=== PATIENT | female | born 1960 | race Caucasian/White ===

== ENCOUNTER → 2017-10-07 06:26 | Outpatient (CLI) | payer MEDICARE, MEDICAID, SELFPAY ==
--- NOTE | 2017-10-07 06:28 | NM_ITS ---
CARDIOLITE SPECT MYOCARDIAL PERFUSION SCAN, REST AND STRESS: EXERCISE STRESS [facility] REVIEW QGS EF AND WALL MOTION EVALUATION: QPS - PERFUSION EVALUATION HISTORY: Chest pain DOSE: 10.13 mCi technetium 99m mibi intravenously at rest followed by 29.1 mCi technetium 99m mibi following the intravenous ministration of 0.4 mg of Lexiscan. Resting blood pressure is 109/56. Stress blood pressure 96/46. FINDINGS: Ejection fraction is calculated to be 70%. Stress images reveal decreased myocardial activity in a portion of the anterior wall while rest images reveal uniform myocardial activity. Gated images calculated ejection fraction of 70% with normal wall motion IMPRESSION: Mild reversible ischemia in the anterior wall with normal ejection fraction and normal wall motion. Clinical correlation advised
--- NOTE | 2017-10-07 07:40 | HMH.ITSHM ---
DULCOLAX NITRO TIZANIDINE COLACE FIBER PROZAC GABAPENTIN MULTIVITAMIN OXYBUTYNIN MIRALAX RESTASIS RIVASTIGMINE
== END ==
PROVIDERS: PCP Emergency Medicine; Visit Provider Internal Medicine
DX: R07.9 Chest pain, unspecified (principal); I95.89 Other hypotension; F02.80 Dementia in other diseases classified elsewhere, unspecified severity, without behavioral disturbance, psychotic disturbance, mood disturbance, and anxiety
CPT/HCPCS: 78452; 93017; 93306; A9502; J2785

== ENCOUNTER 2018-08-14 03:44 | Inpatient (IN) ==
[2018-08-14 04:05] LABS: Basophils # 0.1 K/mm3 (0-0.2); Basophils % 0.5 % (0.1-2.0); Eosinophils # 0.3 K/mm3 (0.0-0.4); Eosinophils % 2.4 % (0.1-12.0); Hematocrit 41.1 % (37.0-47.0); Hemoglobin 13.5 g/dL (12.2-16.2); Lymphocytes # 4.2 K/mm3 (0.7-4.5); Lymphocytes % 39.6 % (10-50); Mean Corpuscular HGB Conc 32.8 g/dL (31.8-35.4); Mean Corpuscular Hemoglobin 27.8 pg (27.0-31.2); Mean Corpuscular Volume 84.6 fl (81-99); Mean Platelet Volume 8.8 fl (7.4-10.4); Monocytes % 8.9 % (1.7-9.3); Neutrophils # 5.2 K/mm3 (1.8-7.8); Neutrophils % 48.6 % (37.0-80.0); Platelet Count 250 K/mm3 (142-424); Red Blood Count 4.85 M/mm3 (4.20-5.40); Red Cell Distribution Width 13.8 % (11.5-17.5); White Blood Count 10.7 K/mm3 (4.8-10.8)
[2018-08-14 04:09] LABS: Microscopic, Urine URINE MICROSCOPIC (MICROSCOPIC)
[2018-08-14 04:12] LABS: Appearance,Urine CLEAR (Clear); Bilirubin,Urine Negative (Negative); Blood, Urine Negative (Negative); Color,Urine YELLOW (Yellow); Glucose,Urine (UA) Negative (Negative); Ketones,Urine Negative (Negative); Leukocyte Esterase,Urine TRACE (Negative); PH,Urine 5.5 (5.0-8.5); Protein,Urine Negative (Negative); Specific Gravity, Urine 1.025 (1.005-1.030); Urobilinogen,Urine 0.2 EU/dl (0.2)
[2018-08-14 04:23] LABS: Anion Gap 13.8 mEq/L (5-15); Blood Urea Nitrogen 13 mg/dL (7-18); Calcium 8.9 mg/dL (8.5-10.1); Carbon Dioxide 27 mmol/L (21.0-32.0); Chloride 105 mmol/L (98-107); Glucose 110 mg/dL (74-106); Potassium 3.8 mmoL/L (3.5-5.1); Sodium 142 mmol/L (136-145)
[2018-08-14 04:36] LABS: Bacteria,Urine 4+ /lpf; Mucus,Urine 2+ /lpf
[2018-08-14 04:38] LABS: Albumin Level 2.8 gm/dL (3.4-5.0); Bilirubin,Direct 0.1 mg/dL (0.0-0.2); Bilirubin,Indirect 0.2 mg/dL (0.0-0.9); Bilirubin,Total 0.3 mg/dL (0.2-1.0); Total Protein,Serum 6.6 gm/dL (6.4-8.2)
--- NOTE | 2018-08-14 05:42 | Emergency Department Note ---
ED Disposition Clinical Impression: Febrile illness, acute, Cavitating mass of lung, Pulmonary nodules/lesions, multiple, Saccular aneurysm, Obesity (BMI 30-39.9) Chest pain Qualifiers: Chest pain type: precordial pain Qualified Code(s): R07.2 - Precordial pain UTI (urinary tract infection) Qualifiers: Urinary tract infection type: site unspecified Hematuria presence: without hematuria Qualified Code(s): N39.0 - Urinary tract infection, site not specified Cholelithiasis Qualifiers: Cholelithiasis location: gallbladder Cholecystitis presence: without cholecystitis Biliary obstruction: without biliary obstruction Qualified Code(s): K80.20 - Calculus of gallbladder without cholecystitis without obstruction Dementia Qualifiers: Dementia type: unspecified type Dementia behavioral disturbance: without behavioral disturbance Qualified Code(s): F03.90 - Unspecified dementia without behavioral disturbance Chronic pain Qualifiers: Chronic pain type: chronic pain syndrome Qualified Code(s): G89.4 - Chronic pain syndrome Disposition: Admitted as Observation Condition on Discharge: Fair Referrals: Provider,Referral, [Referring] - - Critical Care Critical Care Time: No Attestation: On 08/14/18, the high probability of a clinically significant, sudden or life threatening deterioration of the following system(s) required my full and direct attention, intervention and personal management. The time I documented below is in addition to time spent performing reported procedures but includes the following listed in this critical care notation. Medical Decision Making - Medical Records Medical records reviewed: Yes: I reviewed the patient's medical records. - Rick Inquiry Pt receiving controlled substance: No Vital Signs: 08/14/18 03:44 08/14/18 04:15 08/14/18 04:45 Temperature 101.2 F H 100.2 F H Temperature Source Rectal Rectal Pulse Rate [Right Brachial] 87 83 76 Respiratory Rate 16 15 Blood Pressure [Right Arm] 102/54 L 101/54 L 92/56 L Blood Pressure Mean [Right Arm] 70 69 68 02 Sat by Pulse Oximetry 95 94 L 96 Oxygen Delivery Method Nasal Cannula Nasal Cannula Nasal Cannula Oxygen Flow Rate (LPM) 2 2 2 08/14/18 05:05 Temperature Temperature Source Pulse Rate [Right Brachial] 80 Respiratory Rate Blood Pressure [Right Arm] 114/56 L Blood Pressure Mean [Right Arm] 75 02 Sat by Pulse Oximetry 94 L Oxygen Delivery Method Nasal Cannula Oxygen Flow Rate (LPM) 2 - Lab Data Lab results reviewed: Yes: I reviewed the patient's lab results. Lab Results 08/14/18 03:55: WBC 10.7, RBC 4.85, Hgb 13.5, Hct 41.1, MCV 84.6, MCH 27.8, MCHC 32.8, RDW 13.8, Plt Count 250, MPV 8.8, Neut % (Auto) 48.6, Lymph % (Auto) 39.6, Coleman % (Auto) 8.9, Eos % (Auto) 2.4, Baso % (Auto) 0.5, Neut # (Auto) 5.2, Lymph # (Auto) 4.2, Coleman # (Auto) 1.0, Eos # (Auto) 0.3, Baso # (Auto) 0.1 08/14/18 03:55: Sodium 142, Potassium 3.8, Chloride 105, Carbon Dioxide 27, Anion Gap 13.8, BUN 13, Creatinine 0.73, Estimated Creat Clear 119, Estimated GFR 82, Est GFR ( Amer) 99, Glucose 110 H, Calcium 8.9, Troponin I < 0.02 08/14/18 03:55: Lactate 0.4 08/14/18 03:55: Influenza Type A Ag Negative, Influenza Type B Ag Negative 08/14/18 03:55: Total Bilirubin 0.3, Direct Bilirubin 0.1, Indirect Bilirubin 0.2, AST 15, ALT 37, Alkaline Phosphatase 97, Total Protein 6.6, Albumin 2.8 L 08/14/18 04:00: Urine Color Yellow, Urine Appearance Clear, Urine pH 5.5, Ur Specific [place] 1.025, Urine Protein Negative, Urine Glucose (UA) Negative, Urine Ketones Negative, Urine Blood Negative, Urine Nitrate Positive, Urine Bilirubin Negative, Urine Urobilinogen 0.2, Ur Leukocyte Esterase Trace, Urine WBC 5-10, Urine Bacteria 4+, Urine Mucus 2+ Result diagrams: 08/14/18 03:55 08/14/18 03:55 Orders (Tests/Meds): ED MEDICATIONS Generic Name Dose Route Start Last Admin Trade Name Freq PRN Reason Stop Dose Admin Sodium Chloride 1,000 mls @ 999 mls/hr 08/14/18 04:15 08/14/18 04:07 Sod Chlor 0.9% 1000ml Bag IV 08/14/18 05:15 999 mls/hr .Q1H1M CADENCE Administration Sodium Chloride 10 ml 08/14/18 03:48 Saline Flush 10ml Syringe IV 09/13/18 03:47 NEEDED PRN Maintain IV Site Discontinued Medications Generic Name Dose Route Start Last Admin Trade Name Freq PRN Reason Stop Dose Admin Acetaminophen 1,000 mg 08/14/18 04:05 08/14/18 04:07 Tylenol 500mg Tablet PO 08/14/18 04:06 1,000 mg ONCE ONE Administration Ioversol 70 ml 08/14/18 05:59 08/14/18 06:01 Rad-Optiray 350 100ml Vial IV 08/14/18 06:00 70 ml ONCE ONE Administration Protocol Ketorolac Tromethamine 30 mg 08/14/18 04:15 08/14/18 04:16 Toradol 30mg/Ml Vial IV 08/14/18 04:16 30 mg ONCE ONE Administration Methylprednisolone Sodium Succinate 125 mg 08/14/18 04:15 08/14/18 04:16 Solu-Medrol 125mg/2ml Vial IV 08/14/18 04:16 125 mg ONCE ONE Administration Sodium Chloride 40 ml 08/14/18 05:59 08/14/18 06:01 Rad-Ns 50ml Vial IV 08/14/18 06:00 40 ml ONCE ONE Administration Sodium Chloride 10 ml 08/14/18 05:59 08/14/18 06:01 Rad-Saline Flush 10ml Syringe IV 08/14/18 06:00 10 ml ONCE ONE Administration ORDERS Category Date Time Status Blood Culture Stat Micro 08/14/18 03:55 Received Urine Culture Stat Micro 08/14/18 04:00 Received - Radiology Data #1 Image(s): Chest Image Reviewed: Yes I reviewed the patient's radiology image Preliminary Findings: Abnormal (see report) - CT Data CT Scan: Chest Time Received: 06:[address] Reviewed: Yes: I have viewed the radiologist's interpretation Preliminary Findings: Abnormal (see report) - ECG Data Tracing #1 Normal Sinus Rhythm: Yes Ischemic changes: non-specific ST-T wave changes Chest Pain HPI - General Chief Complaint: Chest Pain Stated Complaint: chest pain, sob Time Seen by Provider: 08/14/18 04:00 Mode of Arrival: EMS Source of Information: Patient, EMS, Medical Record Limitations: Physical Limitations Description of Symptoms (Recalled from ER Triage Doc. by RN): Pt brought in by EMS from [facility] for reports of sudden onset chest pain that started approx 45 minutes ago. Pt reports she woke up feeling like an elephant was on her chest. Pt states the pain radiates into her back, and she has sob with it. - History of Present Illness HPI narrative: pt sent from replaced by [facility] for eval of chest pain with no prod cough which started tonight - pt with fever - pt with no reported sob - pt with no hemoptysis MD complaint: chest pain indicative of cardiac Onset (ago): hour(s) Duration: now resolved Activity at onset: during rest Pain location: substernal Severity: moderate Quality: heaviness Pain radiation: none Risk Factors for CAD: Family Hx of CAD Treatments prior to or on arrival for Cardiac Chest Pain: none - CANDELARIO Score for Non-Stemi Age of Patient: 50-59 years old Heart Rate: 70-89 bpm Systolic Blood Pressure: 100-119 mmHg Serum Creatinine: 0.40-0.79 mg/dl CHF Kill[place] Class: I-No CHF Other Risk Factors: None Non-Stemi Risk Score: 97 - Related Data On Oral Contraceptives: No Home Medications Medication Instructions Recorded Confirmed acetaminophen 500 mg capsule 500 mg PO Q4H PRN 07/26/17 08/14/18 bisacodyl 10 mg rectal suppository 10 mg WI DAILY 07/26/17 08/14/18 docusate sodium 250 mg capsule 250 mg PO BID cap 07/26/17 08/14/18 gabapentin 300 mg capsule 300 mg PO QID cap 07/26/17 08/14/18 lactulose 10 gram/15 mL (15 mL) 20 g PO DAILY PRN ml 07/26/17 08/14/18 oral solution multivitamin with minerals capsule 1 cap PO DAILY cap 07/26/17 08/14/18 nitroglycerin 0.4 mg sublingual 0.4 mg SUBLINGUAL Q5M PRN 07/26/17 08/14/18 tablet oxybutynin chloride 5 mg tablet 5 mg PO QID tab 07/26/17 08/14/18 polyethylene glycol 3350 17 17 g PO BID PRN g 07/26/17 08/14/18 gram/dose oral powder rivastigmine 9.5 mg/24 hour 9.5 mg TRANSDERMA DAILY each 07/26/17 08/14/18 transdermal patch tizanidine 4 mg capsule 4 mg PO Q4H PRN cap 07/26/17 08/14/18 Calcium Polycarbophil [Fiber] 625 mg PO BID 08/14/18 08/14/18 cycloSPORINE [Restasis] 1 drop OP BID 08/14/18 08/14/18 Allergies Allergy/AdvReac Type Severity Reaction Status Date / Time bee pollen Allergy Intermediate Unknown Verified 08/14/18 03:51 allergy reaction aspirin Allergy Unknown Verified 08/12/18 18:16 From [facility] (FOOD/DRUG) Allergy Unknown UNK Uncoded 05/07/17 15:29 [facility] History - Hepatitis A Screen Drug use history?: No High risk sexual behaviors?: No History of sexually transmitted infection?: No Currently employed?: No Childcare worker?: No Do you have indoor plumbing?: Yes Do you have electricity?: Yes Attestation statement:: This patient has been screened for Hepatitis A risk factors. I have reviewed the patient's past medical history: Yes Medical History: Reports:: Depression, Hypertension Denies:: Cancer, Diabetes Mellitus Type 1, Diabetes Mellitus Type 2, Internal Pacemaker, MRSA, Seizures Other Medical History: Reports: Arthritis Other Surgeries: Yes: Tubal Ligation. No: Pacemaker Amputation: Yes Fractures: No - Social History Smoking Status: Current every day smoker Tobacco Type: cigarettes # Packs/Day (cigarettes): 1 Alcohol Intake: never Alcohol Intake Frequency:: other Substance Use Type: denies use Occupational Status: unemployed, disabled Housing: correction - Psychiatric History Expresses thoughts of harming self/others: None Suicide Plan Description: No Plan Pschychiatric History:: Reports:: Depression Family Hx:: Unable to obtain Comment: arthritis, ROS Obtained: Yes All systems reviewed & no additional complaints - Constitutional Constitutional: Denies fever(s) - Eyes Eyes: Denies change in vision - ENT Ears, Nose, Mouth, and Throat: Denies sore throat - Cardiovascular Cardiovascular: Reports chest pain, Denies dyspnea - Respiratory Respiratory: No cough - Gastrointestinal Gastrointestingal: Denies: abdominal pain, vomiting - Genitourinary Female Genitourinary: Denies hematuria - Musculoskeletal Musculoskeletal: Denies joint pain, Denies neck pain - Integumentary/Breasts Skin/Breast: Denies rash - Neurologic Neurologic: Denies seizure-like activity Physical Exam - General General appearance: alert - Head Head exam: normocephalic - Eye Eye exam: Present: PERRL, EOMI. Absent: scleral icterus - ENT ENT exam: Present: mucous membranes dry - Neck Neck exam: Present: trachea midline - Respiratory Respiratory exam: Present: normal lung sounds bilaterally. Absent: respiratory distress - Cardiovascular Cardiovascular exam: Present: regular rate, systolic murmur - Abdominal Exam Abdominal exam: Present: soft - Extremities Exam Extremities exam: Present: pedal edema. Absent: calf tenderness - Neurological Exam Neurological exam: Present: alert, CN II-XII intact - Psychiatric Psychiatric exam: Present: normal affect - Skin Skin exam: Absent: rash
--- NOTE | 2018-08-14 09:03 | Consult Report ---
History of Present Illness Consult date: 08/14/18 Requesting physician: Michele Horner Consult reason: chest pain Chief complaint: Back and chest pain Additional Medical History:: 1. Coronary artery disease A. Abnormal Lexiscan Myoview with anterior ischemia, 09/2017 B. Cardiac cath, ANGIOGRAPHIC RESULTS: 1. The left main artery normal 2. The left anterior descending artery normal 3. The circumflex artery nondominant normal 4. The right coronary artery dominant and has a proximal to mid vessel 40- 50% nonflow limiting stenosis 5. The ALEXANDRA ventriculogram reveals normal 65% 6. The left ventricular end-diastolic pressure 10 mmHg IMPRESSION: 1. Moderate disease in the proximal to mid dominant right coronary artery 2. Normal ejection fraction 3. Normal left ventricular end-diastolic pressure PLAN: 1. Medical management 2. LDL less than 55 3. Avoidance of tobacco products 4. Risk factor modification 2. Tobacco use, continued 3. Hypertension 4. History of polysubstance abuse. 5. History of mild dementia History of present illness: 58-year-old white female resident of extended care facility transferred for further evaluation of back pain and chest pain. Patient relates pain in the center of her back near the spine between the shoulder blade area. She also relates some anterior chest discomfort. She does admit to exacerbation of the symptoms with deep breathing or certain movements. ER workup included CTA of the chest revealing what appears to be malignancy with possible metastasis and no evidence of PE. Oncology consult has been placed. Cardiology is asked to see for possible evaluation and treatment of the patient's chest pain with history of coronary artery disease. Baseline EKG shows nonspecific ST-T abnormalities consistent with previous tracings dating back to 2017. Initial troponin is normal. Preliminary echocardiogram pain performed at this time shows preserved ejection fraction. Official report is pending [facility] History Medical History: Reports:: Depression, Hypertension Denies:: Cancer, Diabetes Mellitus Type 1, Diabetes Mellitus Type 2, Internal Pacemaker, MRSA, Seizures *Have you ever received a pneumonia vaccine?: Yes *Have you received a flu vaccine this season?: Yes Other Medical History: Reports: Arthritis Other Surgeries: Yes: Tubal Ligation. No: Pacemaker Amputation: Yes Fractures: No - *Social History Smoking Status: Current every day smoker Tobacco Type: cigarettes # Packs/Day (cigarettes): 2 Alcohol Intake: former Alcohol Intake Frequency:: other Substance Use Type: denies use *Occupational Status:: unemployed, disabled Housing: custodial *Travel in the last 8 weeks: None - Psychiatric History Expresses thoughts of harming self/others: None Suicide Plan Description: No Plan Pschychiatric History:: Reports:: Depression Family Hx:: Unable to obtain Meds Home Medications Medication Instructions Recorded Confirmed Type acetaminophen 500 mg capsule 500 mg PO Q4H PRN 07/26/17 08/14/18 History bisacodyl 10 mg rectal suppository 10 mg UT DAILY 07/26/17 08/14/18 History docusate sodium 250 mg capsule 250 mg PO BID cap 07/26/17 08/14/18 History gabapentin 300 mg capsule 300 mg PO QID cap 07/26/17 08/14/18 History lactulose 10 gram/15 mL (15 mL) 20 g PO DAILY PRN ml 07/26/17 08/14/18 History oral solution multivitamin with minerals capsule 1 cap PO DAILY cap 07/26/17 08/14/18 History nitroglycerin 0.4 mg sublingual 0.4 mg SUBLINGUAL Q5M PRN 07/26/17 08/14/18 History tablet oxybutynin chloride 5 mg tablet 5 mg PO QID tab 07/26/17 08/14/18 History polyethylene glycol 3350 17 17 g PO BID PRN g 07/26/17 08/14/18 History gram/dose oral powder rivastigmine 9.5 mg/24 hour 9.5 mg TRANSDERMA DAILY each 07/26/17 08/14/18 History transdermal patch tizanidine 4 mg capsule 4 mg PO Q4H PRN cap 07/26/17 08/14/18 History Calcium Polycarbophil [Fiber] 625 mg PO BID 08/14/18 08/14/18 History cycloSPORINE [Restasis] 1 drop OP BID 08/14/18 08/14/18 History Allergies Allergy/AdvReac Type Severity Reaction Status Date / Time bee pollen Allergy Intermediate Unknown Verified 08/14/18 03:51 allergy reaction aspirin Allergy Unknown Unknown Verified 08/14/18 08:08 allergy reaction shellfish derived Allergy Unknown Unknown Verified 08/14/18 08:08 allergy reaction Review of Systems - *Cardiovascular Reports chest pain, Reports shortness of breath with activity - *Respiratory Reports shortness of breath with activity - *Gastrointestinal Denies abdominal pain, Denies loose stools - *Genitourinary Denies blood in urine - *Musculoskeletal Reports back pain - *Neurologic Denies seizure-like activity Exam Vital signs and Labs for Last 24 Hours: Temp Pulse Resp BP Pulse Ox 98.2 F 78 18 93/48 L 96 08/14/18 07:00 08/14/18 07:00 08/14/18 07:00 08/14/18 07:00 08/14/18 07:00 Laboratory Results - last 24 hr 08/14/18 03:55: WBC 10.7, RBC 4.85, Hgb 13.5, Hct 41.1, MCV 84.6, MCH 27.8, MCHC 32.8, RDW 13.8, Plt Count 250, MPV 8.8, Neut % (Auto) 48.6, Lymph % (Auto) 39.6, [place] % (Auto) 8.9, Eos % (Auto) 2.4, Baso % (Auto) 0.5, Neut # (Auto) 5.2, Lymph # (Auto) 4.2, [place] # (Auto) 1.0, Eos # (Auto) 0.3, Baso # (Auto) 0.1 08/14/18 03:55: Sodium 142, Potassium 3.8, Chloride 105, Carbon Dioxide 27, Anion Gap 13.8, BUN 13, Creatinine 0.73, Estimated Creat Clear 119, Estimated GFR 82, Est GFR ( Amer) 99, Glucose 110 H, Calcium 8.9, Troponin I < 0.02 08/14/18 03:55: Lactate 0.4 08/14/18 03:55: Influenza Type A Ag Negative, Influenza Type B Ag Negative 08/14/18 03:55: Total Bilirubin 0.3, Direct Bilirubin 0.1, Indirect Bilirubin 0.2, AST 15, ALT 37, Alkaline Phosphatase 97, Total Protein 6.6, Albumin 2.8 L 08/14/18 04:00: Urine Color Yellow, Urine Appearance Clear, Urine pH 5.5, Ur Specific [place] 1.025, Urine Protein Negative, Urine Glucose (UA) Negative, Urine Ketones Negative, Urine Blood Negative, Urine Nitrate Positive, Urine Lopez irubin Negative, Urine Urobilinogen 0.2, Ur Leukocyte Esterase Trace, Urine WBC 5-10, Urine Bacteria 4+, Urine Mucus 2+ I & O for Last 24 hours: Intake & Output 08/11/18 08/12/18 08/13/18 08/14/18 11:59 11:59 11:59 11:59 Intake Total 600 / 600 Balance 600 / 600 Weight 182 lb - *Routine HEENT Exam Head: Present: normocephalic Eye: Present: EOMI, PERRL ENT: Present: mucous membranes moist - *Routine Neck Exam Present: supple. Absent: JVD, carotid bruit - *Routine Respiratory Exam Present: CTA bilaterally. Absent: accessory muscle use, rales, rhonchi, wheezes - *Routine Cardiovascular Exam Present: RRR. Absent: murmur, gallop, rubs - *Routine Abdominal Exam Present: soft. Absent: tenderness, distended, guarding - *Routine Extremities Exam Absent: edema, calf tenderness - *Routine Neurological Exam Present: alert, oriented X3, moving all extremities Assessment and Plan (1) Chest pain Current visit: Yes Status: Acute Qualifiers: Chest pain type: precordial pain Qualified Code(s): R07.2 - Precordial pain Category: Medical Code(s): R07.9 - Chest pain, unspecified (2) CAD (coronary artery disease), [place] coronary artery Current visit: Yes Status: Acute Category: Medical Code(s): I25.10 - Atherosclerotic heart disease of [place] coronary artery without angina pectoris (3) Cavitating mass of lung Current visit: Yes Status: Acute Category: Medical Code(s): J98.4 - Other disorders of lung (4) Dementia Current visit: Yes Status: Acute Qualifiers: Dementia type: unspecified type Dementia behavioral disturbance: without behavioral disturbance Qualified Code(s): F03.90 - Unspecified dementia without behavioral disturbance Category: Medical Code(s): F03.90 - Unspecified dementia without behavioral disturbance (5) Febrile illness, acute Current visit: Yes Status: Acute Category: Medical Code(s): R50.9 - Fever, unspecified (6) Obesity (BMI 30-39.9) Current visit: Yes Status: Acute Category: Medical Code(s): E66.9 - Obesity, unspecified (7) Pulmonary nodules/lesions, multiple Current visit: Yes Status: Acute Category: Medical Code(s): R91.8 - Other nonspecific abnormal finding of lung field (8) Saccular aneurysm Current visit: Yes Status: Acute Category: Medical Code(s): I67.1 - Cerebral aneurysm, nonruptured - Assessment and plan all Dx Assessment and Plan for all problems:: 1. Patient was admitted for back and chest pain. Patient has abnormal CTA of the chest with presumed pulmonary malignancy. At this point with echocardiogram showing normal ejection fraction, lab work showing normal troponin and no acute EKG changes, we would recommend no further cardiac workup. 2. Patient would be cleared for any further pulmonary workup, including biopsy or surgery, from a cardiac standpoint.
[2018-08-14 09:30] LABS: Chol/HDL Ratio 6.3 (1-3.5); Cholesterol 221 mg/dL (140-200); HDL Cholesterol 35 mg/dL (29-89); LDL Cholesterol 168 mg/dL (0-130); Triglycerides 90 mg/dL (30-200); VLDL Cholesterol 18 mg/dL (0-40)
--- NOTE | 2018-08-14 09:31 | Non-Invasive Vascular Report ---
"Venous Exam Indications: 729.81 Swelling of limb. 729.5 Pain in limb. IMPRESSIONS 1. No evidence of deep or superficial vein thrombosis involving the right lower extremity 2. No evidence of deep or superficial vein thrombosis involving the left lower extremity Complete lower extremity venous duplex evaluation. Doppler flow study including spectral analysis, color and hollingsworth scale imaging. Location: Bedside. Patient status: Inpatient. Tables: Venous flow and imaging: + +-------+ + |Location |Overall|Flow properties | + +-------+ + |Right common femoral |Patent |Normal phasicity; spontaneous; | | | |normal augmentation; compressible| + +-------+ + |Right saphenofemoral junction|Patent |Compressible | + +-------+ + |Right profunda femoral |Patent |Compressible | + +-------+ + |Right femoral |Patent |Normal phasicity; spontaneous; | | | |normal augmentation; compressible| + +-------+ + |Right greater saphenous |Patent |Normal phasicity; spontaneous; | | | |normal augmentation; compressible| + +-------+ + |Right popliteal |Patent |Normal phasicity; spontaneous; | | | |normal augmentation; compressible| + +-------+ + |Right posterior tibial |Patent |Compressible | + +-------+ + |Right peroneal |Patent |Compressible | + +-------+ + |Right gastrocnemius |Patent |Compressible | + +-------+ + |Right soleal |Patent |Compressible | + +-------+ + |Left common femoral |Patent |Normal phasicity; spontaneous; | | | |normal augmentation; compressible| + +-------+ + |Left saphenofemoral junction |Patent |Compressible | + +-------+ + |Left profunda femoral |Patent |Compressible | + +-------+ + |Left femoral |Patent |Normal phasicity; spontaneous; | | | |normal augmentation; compressible| + +-------+ + |Left greater saphenous |Patent |Normal phasicity; spontaneous; | | | |normal augmentation; compressible| + +-------+ + |Left popliteal |Patent |Normal phasicity; spontaneous; | | | |normal augmentation; compressible| + +-------+ + |Left posterior tibial |Patent |Compressible | + +-------+ + |Left peroneal |Patent |Compressible | + +-------+ + |Left gastrocnemius |Patent |Compressible | + +-------+ + |Left soleal |Patent |Compressible | + +-------+ + Electronically signed by: Laura Chavarria [id number]"
--- NOTE | 2018-08-14 09:54 | History & Physical Report ---
*Admission Date: 08/14/18 *Chief complaint: cp *History of present illness: 58 yr old female Pt brought in by EMS from [facility] for reports of sudden onset chest pain that started approx 45 minutes ago. Pt reports she woke up feeling like an elephant was on her chest. Pt states the pain radiates into her back, and she has sob with it. Patient admitted for abnormal chest x-ray for consult [facility] History I have reviewed the patient's past medical history: Yes Medical History: Reports:: Depression, Hypertension Denies:: Cancer, Diabetes Mellitus Type 1, Diabetes Mellitus Type 2, Internal Pacemaker, MRSA, Seizures *Have you ever received a pneumonia vaccine?: Yes *Have you received a flu vaccine this season?: Yes Other Medical History: Reports: Arthritis Other Surgeries: Yes: Tubal Ligation. No: Pacemaker Amputation: Yes Fractures: No - *Social History Smoking Status: Current every day smoker Tobacco Type: cigarettes # Packs/Day (cigarettes): 2 Alcohol Intake: former Alcohol Intake Frequency:: other Substance Use Type: denies use *Occupational Status:: unemployed, disabled Housing: intermediate *Travel in the last 8 weeks: None - Psychiatric History Expresses thoughts of harming self/others: None Suicide Plan Description: No Plan Pschychiatric History:: Reports:: Depression Family Hx:: Unable to obtain Review of Systems - Review of Systems Review of systems:: pertinent systems reviewed and negative unless documented below - Constitutional Denies fever(s) - Eyes Denies change in vision - ENT Denies bad breath, Denies sore throat - *Cardiovascular Reports chest pain - *Respiratory Denies shortness of breath - *Gastrointestinal Denies bloating - *Genitourinary Denies abnormal vaginal bleeding - *Musculoskeletal Denies decreased muscle mass - Integumentary/Breasts Denies rash - *Neurologic Denies abnormal movements, Denies seizure-like activity - Psychiatric Denies anxiety - Endocrine Denies heat intolerance - Hematologic/Lymphatic Denies enlarged lymph nodes - Allergic/Immunologic Denies lip swelling Meds Home Medications Medication Instructions Recorded Confirmed Type acetaminophen 500 mg capsule 500 mg PO Q4HP PRN 07/26/17 08/14/18 History bisacodyl 10 mg rectal suppository 10 mg RC Q72H PRN 07/26/17 08/14/18 History docusate sodium 250 mg capsule 250 mg PO BID cap 07/26/17 08/14/18 History gabapentin 300 mg capsule 300 mg PO QID cap 07/26/17 08/14/18 History lactulose 10 gram/15 mL (15 mL) 20 gm PO DAILYP PRN ml 07/26/17 08/14/18 History oral solution multivitamin with minerals capsule 1 cap PO DAILY cap 07/26/17 08/14/18 History nitroglycerin 0.4 mg sublingual 0.4 mg SUBLINGUAL Q5MINP PRN 07/26/17 08/14/18 History tablet oxybutynin chloride 5 mg tablet 5 mg PO QID tab 07/26/17 08/14/18 History polyethylene glycol 3350 17 17 g PO BID g 07/26/17 08/14/18 History gram/dose oral powder rivastigmine 9.5 mg/24 hour 9.5 mg TRANSDERMA DAILY each 07/26/17 08/14/18 History transdermal patch tizanidine 4 mg capsule 4 mg PO Q4HP PRN cap 07/26/17 08/14/18 History Calcium Polycarbophil [Fiber] 625 mg PO DAILY 08/14/18 08/14/18 History cycloSPORINE [Restasis] 1 drop OP BID 08/14/18 08/14/18 History Allergies Allergy/AdvReac Type Severity Reaction Status Date / Time bee pollen Allergy Intermediate Unknown Verified 08/14/18 03:51 allergy reaction aspirin Allergy Unknown Unknown Verified 08/14/18 08:08 allergy reaction shellfish derived Allergy Unknown Unknown Verified 08/14/18 08:08 allergy reaction Exam Vital signs and Labs for Last 24 Hours: Temp Pulse Resp BP Pulse Ox 98.2 F 78 18 93/48 L 96 08/14/18 07:00 08/14/18 07:00 08/14/18 07:00 08/14/18 07:00 08/14/18 07:00 Laboratory Results - last 24 hr 08/14/18 03:55: WBC 10.7, RBC 4.85, Hgb 13.5, Hct 41.1, MCV 84.6, MCH 27.8, MCHC 32.8, RDW 13.8, Plt Count 250, MPV 8.8, Neut % (Auto) 48.6, Lymph % (Auto) 39.6, [place] % (Auto) 8.9, Eos % (Auto) 2.4, Baso % (Auto) 0.5, Neut # (Auto) 5.2, Lymph # (Auto) 4.2, [place] # (Auto) 1.0, Eos # (Auto) 0.3, Baso # (Auto) 0.1 08/14/18 03:55: Sodium 142, Potassium 3.8, Chloride 105, Carbon Dioxide 27, Anion Gap 13.8, BUN 13, Creatinine 0.73, Estimated Creat Clear 119, Estimated GFR 82, Est GFR ( Amer) 99, Glucose 110 H, Calcium 8.9, Troponin I < 0.02 08/14/18 03:55: Lactate 0.4 08/14/18 03:55: Influenza Type A Ag Negative, Influenza Type B Ag Negative 08/14/18 03:55: Total Bilirubin 0.3, Direct Bilirubin 0.1, Indirect Bilirubin 0.2, AST 15, ALT 37, Alkaline Phosphatase 97, Total Protein 6.6, Albumin 2.8 L 08/14/18 04:00: Urine Color Yellow, Urine Appearance Clear, Urine pH 5.5, Ur Specific [place] 1.025, Urine Protein Negative, Urine Glucose (UA) Negative, Urine Ketones Negative, Urine Blood Negative, Urine Nitrate Positive, Urine Bilirubin Negative, Urine Urobilinogen 0.2, Ur Leukocyte Esterase Trace, Urine WBC 5-10, Urine Bacteria 4+, Urine Mucus 2+ 08/14/18 09:05: Magnesium 1.9, Troponin I < 0.02, Triglycerides 90, Cholesterol 221 H, LDL Cholesterol 168 H, VLDL Cholesterol 18, HDL Cholesterol 35, Cholesterol/HDL Ratio 6.3 H I & O for Last 24 hours: Intake & Output 08/11/18 08/12/18 08/13/18 08/14/18 11:59 11:59 11:59 11:59 Intake Total 600 / 600 Balance 600 / 600 Weight 182 lb - Constitutional no acute distress - *Routine HEENT Exam Head: Present: normocephalic Eye: Present: PERRL ENT: Present: mucous membranes moist - *Routine Neck Exam Present: supple. Absent: lymphadenopathy - *Routine Respiratory Exam Present: CTA bilaterally - *Routine Cardiovascular Exam Present: RRR - *Routine Abdominal Exam Present: soft, normoactive bowel sounds. Absent: tenderness - *Routine Extremities Exam Absent: cyanosis, clubbing, edema - *Routine Skin Exam Present: warm. Absent: rash - *Routine Neurological Exam Present: alert, oriented X3 - Routine Psychiatric Exam Present: normal affect Assessment and Plan (1) Chest pain Current visit: Yes Status: Acute Qualifiers: Chest pain type: precordial pain Qualified Code(s): R07.2 - Precordial pain Category: Medical Code(s): R07.9 - Chest pain, unspecified (2) CAD (coronary artery disease), [place] coronary artery Current visit: Yes Status: Acute Category: Medical Code(s): I25.10 - Atherosclerotic heart disease of [place] coronary artery without angina pectoris (3) Cavitating mass of lung Current visit: Yes Status: Acute Category: Medical Code(s): J98.4 - Other disorders of lung (4) Dementia Current visit: Yes Status: Acute Qualifiers: Dementia type: unspecified type Dementia behavioral disturbance: without behavioral disturbance Qualified Code(s): F03.90 - Unspecified dementia without behavioral disturbance Category: Medical Code(s): F03.90 - Unspecified dementia without behavioral disturbance (5) Febrile illness, acute Current visit: Yes Status: Acute Category: Medical Code(s): R50.9 - Fever, unspecified (6) Obesity (BMI 30-39.9) Current visit: Yes Status: Acute Category: Medical Code(s): E66.9 - Obesity, unspecified (7) Pulmonary nodules/lesions, multiple Current visit: Yes Status: Acute Category: Medical Code(s): R91.8 - Other nonspecific abnormal finding of lung field (8) Saccular aneurysm Current visit: Yes Status: Acute Category: Medical Code(s): I67.1 - Cerebral aneurysm, nonruptured - Assessment and plan all Dx Assessment and Plan for all problems:: Rounded with Dr. Horner all orders per Siri
--- NOTE | 2018-08-14 09:56 | Cardiology Report ---
PROCEDURE: 2-D M-mode and color Doppler study INDICATIONS FOR THE TEST: Chest painX COPDX Heart Murmur Tobacco SmokingX Palpitations Fatigue Syncope Edema HypertensionXDiabetes Mellitus Rheumatic Fever SOBXDOE Obesity Hyperlipidemia Family History HD Additional History LUNG MASS PATIENT INFORMATION HEIGHT: 63 WEIGHT:182 GENDER: Female B/P:114/56 2-D/M-MODE INTERPRETATION: 2-D MEASUREMENTS OBSERVED VALUES IN CMS Right Ventricular Dimension (RVDd) 2.2 Interventricular Septum (Thickness)(IVsd) .9 Left Ventricular Internal Dimensions(LVIDd) 5.1 Left Ventricular Posterior Wall (Thickness)(LVPWd) 1.0 Aortic Root 3.2 Aortic Cusp Separation 2.0 Left Atrial Dimensions (LAD) 2.8 2D 1. Left atrium is normal size, left ventricle is normal size, there is no concentric left ventricular hypertrophy, visually estimated ejection fraction of 55% with no regional wall motion abnormality. 2. The right atrium and right ventricle are qualitatively mildly enlarged with normal contractility. 3. The aortic valve is minimally thickened and fibrosed. 4. The mitral and tricuspid valve are grossly normal. 5. The pulmonic valve is poorly visualized. 6. No significant pericardial effusion noted. DOPPLER INTERROGATION: Doppler interrogation of the aortic, mitral and tricuspid valve reveals presence of mild mitral and tricuspid regurgitation, calculated right ventricular systolic pressure is 42 mmHg consistent with moderate pulmonary hypertension, grade 1 diastolic dysfunction seen without tissue Doppler evidence of a increased left atrial pressure, inferior vena cava is normal size with normal inspiratory collapse. CONCLUSION: 1. Normal left ventricular size, preserved left ventricular systolic function, visually estimated ejection fraction 55% with no regional wall motion abnormality, grade 1 diastolic dysfunction seen without tissue Doppler evidence of raised left atrial pressure. 2. Mildly enlarged right ventricle with normal contractility. 3. Mild mitral and tricuspid regurgitation, calculated right ventricular systolic pressure is 42 mmHg consistent with moderate pulmonary hypertension, inferior vena cava is normal size with normal inspiratory collapse. 4. No significant pericardial effusion noted.
--- NOTE | 2018-08-14 10:30 | Pharmacy Consult Notes ---
[facility] Pharmacy VTE Monitoring - Patient Demographics Admission date: 08/14/18 Report Date: 08/14/18 Time: 10:30 Allergies/Adverse Reactions: Patient Allergies bee pollen Allergy (Intermediate, Verified 08/14/18 03:51) Unknown allergy reaction aspirin Allergy (Unknown, Verified 08/14/18 08:08) Unknown allergy reaction shellfish derived Allergy (Unknown, Verified 08/14/18 08:08) Unknown allergy reaction Height: 1.6 m Weight: 82.554 kg Patient Problems: Current Active Problems Febrile illness, acute (Acute) UTI (urinary tract infection) (Acute) Cavitating mass of lung (Acute) Pulmonary nodules/lesions, multiple (Acute) Saccular aneurysm (Acute) Cholelithiasis (Acute) Obesity (BMI 30-39.9) (Acute) Dementia (Acute) Chronic pain (Acute) CAD (coronary artery disease), [place] coronary artery (Acute) Chest pain (Acute) - VTE Risk Labs: VTE Related Lab Results Hgb 13.5 g/dL (12.2-16.2) 08/14/18 03:55 Hct 41.1 % (37.0-47.0) 08/14/18 03:55 Plt Count 250 K/mm3 (142-424) 08/14/18 03:55 BUN 13 mg/dL (7-18) 08/14/18 03:55 Creatinine 0.73 mg/dL (0.55-1.02) 08/14/18 03:55 Estimated Creat Clear 119 mL/min (50-200) 08/14/18 03:55 Was VTE Risk Assessment Performed: Yes VTE Score: 3 VTE Risk Level: Low Risk - Prophylaxis VTE Prophylaxis Ordered?: Yes Types of VTE Prophylaxis: TEDS Knee High Location of Applied Device: Bilateral Lower Extremeties - VTE Diagnosis Confirmed Treatment or plan recommended: Continue Current Treatment
--- NOTE | 2018-08-14 12:44 | Consult Report ---
*Admission Date: 08/14/18 *Chief complaint: lung lesions *History of present illness: 58 yo wf we are ask to see due to abnl ct scan. she had ct angio of chest demonstrating enlarging bilateral lung masses. rul measured 2.3 x 1.8 cm and kirt 3.4 x 3 cm. she denies coughing and sob. she is current smoker 1/2-1 ppd x 30 years. she reports she is gaining weight. [facility] History Medical History: Reports:: Depression, Hypertension Denies:: Cancer, Diabetes Mellitus Type 1, Diabetes Mellitus Type 2, Internal Pacemaker, MRSA, Seizures *Have you ever received a pneumonia vaccine?: Yes *Have you received a flu vaccine this season?: Yes Other Medical History: Reports: Arthritis Other Surgeries: Yes: Tubal Ligation. No: Pacemaker Amputation: Yes Fractures: No - *Social History Smoking Status: Current every day smoker Tobacco Type: cigarettes # Packs/Day (cigarettes): 2 Alcohol Intake: former Alcohol Intake Frequency:: other Substance Use Type: denies use *Occupational Status:: unemployed, disabled Housing: [facility] *Travel in the last 8 weeks: None - Psychiatric History Expresses thoughts of harming self/others: None Suicide Plan Description: No Plan Pschychiatric History:: Reports:: Depression Family Hx:: Unable to obtain Review of Systems - *Neurologic Denies seizure-like activity Meds Home Medications Medication Instructions Recorded Confirmed Type acetaminophen 500 mg capsule 500 mg PO Q4HP PRN 07/26/17 08/14/18 History bisacodyl 10 mg rectal suppository 10 mg RC Q72H PRN 07/26/17 08/14/18 History docusate sodium 250 mg capsule 250 mg PO BID cap 07/26/17 08/14/18 History gabapentin 300 mg capsule 300 mg PO QID cap 07/26/17 08/14/18 History lactulose 10 gram/15 mL (15 mL) 20 gm PO DAILYP PRN ml 07/26/17 08/14/18 History oral solution multivitamin with minerals capsule 1 cap PO DAILY cap 07/26/17 08/14/18 History nitroglycerin 0.4 mg sublingual 0.4 mg SUBLINGUAL Q5MINP PRN 07/26/17 08/14/18 History tablet oxybutynin chloride 5 mg tablet 5 mg PO QID tab 07/26/17 08/14/18 History polyethylene glycol 3350 17 17 g PO BID g 07/26/17 08/14/18 History gram/dose oral powder rivastigmine 9.5 mg/24 hour 9.5 mg TRANSDERMA DAILY each 07/26/17 08/14/18 History transdermal patch tizanidine 4 mg capsule 4 mg PO Q4HP PRN cap 07/26/17 08/14/18 History Calcium Polycarbophil [Fiber] 625 mg PO DAILY 08/14/18 08/14/18 History cycloSPORINE [Restasis] 1 drop OP BID 08/14/18 08/14/18 History Allergies Allergy/AdvReac Type Severity Reaction Status Date / Time bee pollen Allergy Intermediate Unknown Verified 08/14/18 03:51 allergy reaction aspirin Allergy Unknown Unknown Verified 08/14/18 08:08 allergy reaction shellfish derived Allergy Unknown Unknown Verified 08/14/18 08:08 allergy reaction Exam Vital signs and Labs for Last 24 Hours: Temp Pulse Resp BP Pulse Ox 98.2 F 78 18 93/48 L 98 08/14/18 07:00 08/14/18 07:00 08/14/18 07:00 08/14/18 07:00 08/14/18 10:56 Laboratory Results - last 24 hr 08/14/18 03:55: WBC 10.7, RBC 4.85, Hgb 13.5, Hct 41.1, MCV 84.6, MCH 27.8, MCHC 32.8, RDW 13.8, Plt Count 250, MPV 8.8, Neut % (Auto) 48.6, Lymph % (Auto) 39.6, [place] % (Auto) 8.9, Eos % (Auto) 2.4, Baso % (Auto) 0.5, Neut # (Auto) 5.2, Lymph # (Auto) 4.2, [place] # (Auto) 1.0, Eos # (Auto) 0.3, Baso # (Auto) 0.1 08/14/18 03:55: Sodium 142, Potassium 3.8, Chloride 105, Carbon Dioxide 27, Anion Gap 13.8, BUN 13, Creatinine 0.73, Estimated Creat Clear 119, Estimated GFR 82, Est GFR ( Amer) 99, Glucose 110 H, Calcium 8.9, Troponin I < 0.02 08/14/18 03:55: Lactate 0.4 08/14/18 03:55: Influenza Type A Ag Negative, Influenza Type B Ag Negative 08/14/18 03:55: Total Bilirubin 0.3, Direct Bilirubin 0.1, Indirect Bilirubin 0.2, AST 15, ALT 37, Alkaline Phosphatase 97, Total Protein 6.6, Albumin 2.8 L 08/14/18 04:00: Urine Color Yellow, Urine Appearance Clear, Urine pH 5.5, Ur Specific [place] 1.025, Urine Protein Negative, Urine Glucose (UA) Negative, Urine Ketones Negative, Urine Blood Negative, Urine Nitrate Positive, Urine Bilirubin Negative, Urine Urobilinogen 0.2, Ur Leukocyte Esterase Trace, Urine WBC 5-10, Urine Bacteria 4+, Urine Mucus 2+ 08/14/18 09:05: Magnesium 1.9, Troponin I < 0.02, Triglycerides 90, Cholesterol 221 H, LDL Cholesterol 168 H, VLDL Cholesterol 18, HDL Cholesterol 35, Cholesterol/HDL Ratio 6.3 H I & O for Last 24 hours: Intake & Output 08/12/18 08/13/18 08/14/18 08/15/18 11:59 11:59 11:59 11:59 Intake Total 600 / 600 Balance 600 / 600 Weight 182 lb Internal Medicine - CN: Reslt - Labs CBC & Chem 7: 08/14/18 03:55 08/14/18 03:55 Labs: Short CBC 08/14/18 Range/Units 03:55 WBC 10.7 (4.8-10.8) K/mm3 Hgb 13.5 (12.2-16.2) g/dL Hct 41.1 (37.0-47.0) % Plt Count 250 (142-424) K/mm3 BMP 08/14/18 03:55 Sodium 142 Potassium 3.8 Chloride 105 Carbon Dioxide 27 BUN 13 Creatinine 0.73 Glucose 110 H Calcium 8.9 Cardiac Enzymes 08/14/18 08/14/18 Range/Units 03:55 09:05 Troponin I < 0.02 < 0.02 (0.00-0.06) ng/ml Liver Function 08/14/18 Range/Units 03:55 Total Bilirubin 0.3 (0.2-1.0) mg/dL Direct Bilirubin 0.1 (0.0-0.2) mg/dL AST 15 (15-37) U/L ALT 37 (12-78) U/L Alkaline Phosphatase 97 (46-116) U/L Albumin 2.8 L (3.4-5.0) gm/dL Urine 08/14/18 Range/Units 04:00 Urine Color Yellow (Yellow) Urine Appearance Clear (Clear) Urine pH 5.5 (5.0-8.5) Ur Specific [place] 1.025 (1.005-1.030) Urine Protein Negative (Negative) Urine Glucose (UA) Negative (Negative) Assessment and Plan (1) Chest pain Current visit: Yes Status: Acute Qualifiers: Chest pain type: precordial pain Qualified Code(s): R07.2 - Precordial pain Category: Medical Code(s): R07.9 - Chest pain, unspecified (2) CAD (coronary artery disease), [place] coronary artery Current visit: Yes Status: Acute Category: Medical Code(s): I25.10 - Atherosclerotic heart disease of [place] coronary artery without angina pectoris (3) Cavitating mass of lung Current visit: Yes Status: Acute Category: Medical Code(s): J98.4 - Other disorders of lung (4) Dementia Current visit: Yes Status: Acute Qualifiers: Dementia type: unspecified type Dementia behavioral disturbance: without behavioral disturbance Qualified Code(s): F03.90 - Unspecified dementia without behavioral disturbance Category: Medical Code(s): F03.90 - Unspecified dementia without behavioral disturbance (5) Febrile illness, acute Current visit: Yes Status: Acute Category: Medical Code(s): R50.9 - Fever, unspecified (6) Obesity (BMI 30-39.9) Current visit: Yes Status: Acute Category: Medical Code(s): E66.9 - Obesity, unspecified (7) Pulmonary nodules/lesions, multiple Current visit: Yes Status: Acute Category: Medical Code(s): R91.8 - Other nonspecific abnormal finding of lung field (8) Saccular aneurysm Current visit: Yes Status: Acute Category: Medical Code(s): I67.1 - Cerebral aneurysm, nonruptured - Assessment and plan all Dx Assessment and Plan for all problems:: pt with 2 separate lung lesions in separate lobes concerning for malignancy as it appears they are enlarging. recommend ct of abd/pelvis to eval for distant metastatic disease. if lesions noted elsewhere recommend biopsy at most accessible lesion. if no other concerning lesions will need pet scan and biopsy (potentially of both lung lesions) in order to document metastatic vs 2 separate primary lesions. await ct of abd/pelvis. f/up with me next week for further discussion . Kristel Lucas MD
[2018-08-15 06:18] LABS: Basophils % 0.3 % (0.1-2.0); Eosinophils # 0.1 K/mm3 (0.0-0.4); Eosinophils % 0.6 % (0.1-12.0); Hematocrit 37.3 % (37.0-47.0); Hemoglobin 12.2 g/dL (12.2-16.2); Lymphocytes # 5.2 K/mm3 (0.7-4.5); Lymphocytes % 40.8 % (10-50); Mean Corpuscular HGB Conc 32.6 g/dL (31.8-35.4); Mean Corpuscular Hemoglobin 27.8 pg (27.0-31.2); Mean Corpuscular Volume 85.1 fl (81-99); Mean Platelet Volume 8.9 fl (7.4-10.4); Monocytes # 0.8 K/mm3 (0.1-1.0); Monocytes % 5.9 % (1.7-9.3); Neutrophils # 6.6 K/mm3 (1.8-7.8); Neutrophils % 52.3 % (37.0-80.0); Platelet Count 211 K/mm3 (142-424); Red Blood Count 4.38 M/mm3 (4.20-5.40); Red Cell Distribution Width 13.6 % (11.5-17.5); White Blood Count 12.7 K/mm3 (4.8-10.8)
[2018-08-15 06:37] LABS: Albumin Level 2.5 gm/dL (3.4-5.0); Albumin/Globulin Ratio 0.7 (1.1-1.8); Anion Gap 10.8 mEq/L (5-15); Bilirubin,Total 0.1 mg/dL (0.2-1.0); Calcium 8.4 mg/dL (8.5-10.1); Globulin 3.5 gm/dl (1.3-3.2); Potassium 3.8 mmoL/L (3.5-5.1)
--- NOTE | 2018-08-15 08:24 | Progress Note ---
Subjective Date: 08/15/18 Time: 08:20 Principal diagnosis: chest/back pain Interval history: 58 yo WF in bed in NAD. No chest or back pain. No complaint of SOA. Wants a cigarette. Exam Vital signs and Labs for Last 24 Hours: Temp Pulse Resp BP Pulse Ox 98.5 F 83 17 98/41 L 96 08/15/18 04:00 08/15/18 04:00 08/15/18 04:00 08/15/18 04:00 08/15/18 04:00 Laboratory Results - last 24 hr 08/14/18 04:00: Urine Color Yellow, Urine Appearance Clear, Urine pH 5.5, Ur Specific [place] 1.025, Urine Protein Negative, Urine Glucose (UA) Negative, Urine Ketones Negative, Urine Blood Negative, Urine Nitrate Positive, Urine Bilirubin Negative, Urine Urobilinogen 0.2, Ur Leukocyte Esterase Trace, Urine WBC 5-10, Urine Bacteria 4+, Urine Mucus 2+ 08/14/18 09:05: Magnesium 1.9, Troponin I < 0.02, Triglycerides 90, Cholesterol 221 H, LDL Cholesterol 168 H, VLDL Cholesterol 18, HDL Cholesterol 35, C holesterol/HDL Ratio 6.3 H 08/14/18 13:20: Troponin I < 0.02 08/15/18 05:35: WBC 12.7 H, RBC 4.38, Hgb 12.2, Hct 37.3, MCV 85.1, MCH 27.8, MCHC 32.6, RDW 13.6, Plt Count 211, MPV 8.9, Neut % (Auto) 52.3, Lymph % (Auto) 40.8, [place] % (Auto) 5.9, Eos % (Auto) 0.6, Baso % (Auto) 0.3, Neut # (Auto) 6.6, Lymph # (Auto) 5.2 H, [place] # (Auto) 0.8, Eos # (Auto) 0.1, Baso # (Auto) 0.0 08/15/18 05:35: Sodium 146 H, Potassium 3.8, Chloride 111 H, Carbon Dioxide 28, Anion Gap 10.8, BUN 9 D, Creatinine 0.79, Estimated Creat Clear 102, Estimated GFR 74, Est GFR ( Amer) 90, Glucose 126 H, Calcium 8.4 L, Total Bilirubin 0.1 L, AST 13 L, ALT 32, Alkaline Phosphatase 83, Total Protein 6.0 L, Albumin 2.5 L D, Globulin 3.5 H, Albumin/Globulin Ratio 0.7 L I & O for Last 24 hours: Intake & Output 08/12/18 08/13/18 08/14/18 08/15/18 11:59 11:59 11:59 11:59 Intake Total 600 / 600 1364 / 1364 Balance 600 / 600 1364 / 1364 Weight 182 lb 185 lb 6 oz Microbiology Reports for the Last 24 Hours: Microbiology 08/14/18 04:00 Urine,Catheterized Urine Culture - Preliminary Gram Negative Rods - *Routine Respiratory Exam Present: CTA bilaterally. Absent: accessory muscle use, rales, rhonchi, wheezes - *Routine Cardiovascular Exam Present: RRR. Absent: murmur, gallop, rubs Progress Note: A&P (1) Chest pain Status: Acute Current Visit: Yes (2) CAD (coronary artery disease), [place] coronary artery Status: Acute Current Visit: Yes (3) Cavitating mass of lung Status: Acute Current Visit: Yes (4) Dementia Status: Acute Current Visit: Yes (5) Febrile illness, acute Status: Acute Current Visit: Yes (6) Obesity (BMI 30-39.9) Status: Acute Current Visit: Yes (7) Pulmonary nodules/lesions, multiple Status: Acute Current Visit: Yes (8) Saccular aneurysm Status: Acute Current Visit: Yes Assessment and Plan for All Diagnoses:: 1. Echo shows preserved EF with elevated right heart pressure. With low BP, will recommend low dose diuretic as needed for SOA (lasix 20 mg Qday PRN). 2. Nothing further to add. 3. OK for discharge from Cardiology standpoint.
--- NOTE | 2018-08-15 09:18 | Discharge Summary ---
General - General Admission date:: 08/14/18 Discharge date: 08/15/18 HPI HPI: 58 yr old female Pt brought in by EMS from [facility] for reports of sudden onset chest pain that started approx 45 minutes ago. Pt reports she woke up feeling like an elephant was on her chest. Pt states the pain radiates into her back, and she has sob with it. Patient admitted for abnormal chest x-ray for consult Hospital Course Hospital Course: ct abd:IMPRESSION: 1. Cholelithiasis. 2. Sigmoid diverticulosis. 3. Lingular mass echo:CONCLUSION: 1. Normal left ventricular size, preserved left ventricular systolic function, visually estimated ejection fraction 55% with no regional wall motion abnormality, grade 1 diastolic dysfunction seen without tissue Doppler evidence of raised left atrial pressure. 2. Mildly enlarged right ventricle with normal contractility. 3. Mild mitral and tricuspid regurgitation, calculated right ventricular systolic pressure is 42 mmHg consistent with moderate pulmonary hypertension, inferior vena cava is normal size with normal inspiratory collapse. 4. No significant pericardial effusion noted. venous doppler neg ct chest:IMPRESSION: 1. No evidence of pulmonary embolus. 2. No change small saccular aneurysm of the aortic arch laterally 3. Bilateral pulmonary nodules which have progressed including enlarged left upper lobe mass consistent with neoplasm/metastasis. The cavitating mass in the right upper lobe or the enlarging mass in the left upper lobe could be related to primary malignancy. 4. Groundglass consolidation in the right upper lobe and to a lesser degree the left upper lobe suggesting pneumonitis. 5. Cholelithiasis chest x ray:IMPRESSION: Right upper lobe and left midlung nodules suspicious for metastatic disease/neoplasm. No lobar consolidation or collapse Dr. Lucas consult see note Will discharge back to [facility]. Will follow up with Dr. Lucas and Dr. Peck and have a mammogram done as an outpatient. Objective Vital signs: Temp Pulse Resp BP Pulse Ox 97.6 F 81 18 104/58 L 95 08/15/18 08:00 08/15/18 08:00 08/15/18 08:00 08/15/18 08:00 08/15/18 08:00 no acute distress - *Routine HEENT Exam Head: Present: normocephalic Eye: Present: PERRL ENT: Present: mucous membranes moist - *Routine Neck Exam Present: full ROM - Routine Chest/Breast/Axilla Exam Comments: Right nipple inverted - *Routine Respiratory Exam Present: CTA bilaterally - *Routine Cardiovascular Exam Present: RRR - *Routine Abdominal Exam Present: soft, normoactive bowel sounds - *Routine Extremities Exam Present: full ROM - *Routine Skin Exam Present: intact - *Routine Neurological Exam Present: alert, oriented X3 - Routine Psychiatric Exam Present: normal affect Results Labs on day of discharge: Labs from last 24 hours 08/15/18 08/15/18 08/14/18 05:35 05:35 13:20 WBC 12.7 H RBC 4.38 Hgb 12.2 Hct 37.3 MCV 85.1 MCH 27.8 MCHC 32.6 RDW 13.6 Plt Count 211 MPV 8.9 Neut % (Auto) 52.3 Lymph % (Auto) 40.8 [place] % (Auto) 5.9 Eos % (Auto) 0.6 Baso % (Auto) 0.3 Neut # (Auto) 6.6 Lymph # (Auto) 5.2 H [place] # (Auto) 0.8 Eos # (Auto) 0.1 Baso # (Auto) 0.0 Sodium 146 H Potassium 3.8 Chloride 111 H Carbon Dioxide 28 Anion Gap 10.8 BUN 9 D Creatinine 0.79 Estimated Creat Clear 102 Estimated GFR 74 Est GFR ( Amer) 90 Glucose 126 H Calcium 8.4 L Magnesium Total Bilirubin 0.1 L AST 13 L ALT 32 Alkaline Phosphatase 83 Troponin I < 0.02 Total Protein 6.0 L Albumin 2.5 L D Globulin 3.5 H Albumin/Globulin Ratio 0.7 L Triglycerides Cholesterol LDL Cholesterol VLDL Cholesterol HDL Cholesterol Cholesterol/HDL Ratio Urine Color Urine Appearance Urine pH Ur Specific [place] Urine Protein Urine Glucose (UA) Urine Ketones Urine Blood Urine Nitrate Urine Bilirubin Urine Urobilinogen Ur Leukocyte Esterase Urine WBC Urine Bacteria Urine Mucus 08/14/18 08/14/18 09:05 04:00 WBC RBC Hgb Hct MCV MCH MCHC RDW Plt Count MPV Neut % (Auto) Lymph % (Auto) [place] % (Auto) Eos % (Auto) Baso % (Auto) Neut # (Auto) Lymph # (Auto) [place] # (Auto) Eos # (Auto) Baso # (Auto) Sodium Potassium Chloride Carbon Dioxide Anion Gap BUN Creatinine Estimated Creat Clear Estimated GFR Est GFR ( Amer) Glucose Calcium Magnesium 1.9 Total Bilirubin AST ALT Alkaline Phosphatase Troponin I < 0.02 Total Protein Albumin Globulin Albumin/Globulin Ratio Triglycerides 90 Cholesterol 221 H LDL Cholesterol 168 H VLDL Cholesterol 18 HDL Cholesterol 35 Cholesterol/HDL Ratio 6.3 H Urine Color Yellow Urine Appearance Clear Urine pH 5.5 Ur Specific [place] 1.025 Urine Protein Negative Urine Glucose (UA) Negative Urine Ketones Negative Urine Blood Negative Urine Nitrate Positive Urine Bilirubin Negative Urine Urobilinogen 0.2 Ur Leukocyte Esterase Trace Urine WBC 5-10 Urine Bacteria 4+ Urine Mucus 2+ Preliminary micro results at discharge 08/14/18 04:00 Urine Culture - Preliminary Urine,Catheterized Gram Negative Rods - Additional Comments Rounded with Dr. Horner all orders per Siri Follow-up with Dr. Lundberg Follow-up with Dr. Peck Mammogram as an outpatient DS: Diagnosis - Discharge Diagnosis (1) Chest pain Status: Acute (2) CAD (coronary artery disease), [place] coronary artery Status: Acute (3) Cavitating mass of lung Status: Acute (4) Dementia Status: Acute (5) Febrile illness, acute Status: Acute (6) Obesity (BMI 30-39.9) Status: Acute (7) Pulmonary nodules/lesions, multiple Status: Acute (8) Saccular aneurysm Status: Acute (9) Tobacco abuse Status: Acute Discharge Plan - Patient Discharge Instructions ACTIVITY: Continue current activity DIET: continue same diet Patient Instructions: DI for Angina, DI for Urinary Tract Infection (UTI) - Follow up Plan Follow up with: Shadi Harmon APRN [Advanced Practice Nurse] - Kristel Lucas MD [Staff Physician] - 1 week Nguyễn Peck MD [Consulting Physician] - 1 week Disposition: [facility] Home Medications: Home Medications Medication Instructions Recorded Confirmed Type acetaminophen 500 mg capsule 500 mg PO Q4HP PRN 07/26/17 08/14/18 History bisacodyl 10 mg rectal suppository 10 mg RC Q72H PRN 07/26/17 08/14/18 History docusate sodium 250 mg capsule 250 mg PO BID cap 07/26/17 08/14/18 History gabapentin 300 mg capsule 300 mg PO QID cap 07/26/17 08/14/18 History lactulose 10 gram/15 mL (15 mL) 20 gm PO DAILYP PRN ml 07/26/17 08/14/18 History oral solution multivitamin with minerals capsule 1 cap PO DAILY cap 07/26/17 08/14/18 History nitroglycerin 0.4 mg sublingual 0.4 mg SUBLINGUAL Q5MINP PRN 07/26/17 08/14/18 History tablet oxybutynin chloride 5 mg tablet 5 mg PO QID tab 07/26/17 08/14/18 History polyethylene glycol 3350 17 17 g PO BID g 07/26/17 08/14/18 History gram/dose oral powder rivastigmine 9.5 mg/24 hour 9.5 mg TRANSDERMA DAILY each 07/26/17 08/14/18 History transdermal patch tizanidine 4 mg capsule 4 mg PO Q4HP PRN cap 07/26/17 08/14/18 History Calcium Polycarbophil [Fiber] 625 mg PO DAILY 08/14/18 08/14/18 History cycloSPORINE [Restasis] 1 drop OP BID 08/14/18 08/14/18 History cephALEXin [Keflex 500mg Cap] 500 mg PO BID 10 Days #20 cap 08/15/18 Rx Prescriptions/Medication Reconciliation: New cephALEXin [Keflex 500mg Cap] 500 mg PO BID 10 Days #20 cap Continue gabapentin 300 mg capsule 300 mg PO QID cap oxybutynin chloride 5 mg tablet 5 mg PO QID tab polyethylene glycol 3350 17 gram/dose oral powder 17 g PO BID g rivastigmine 9.5 mg/24 hour transdermal patch 9.5 mg TRANSDERMA DAILY each bisacodyl 10 mg rectal suppository 10 mg RC Q72H PRN PRN Reason: Constipation nitroglycerin 0.4 mg sublingual tablet 0.4 mg SUBLINGUAL Q5MINP PRN PRN Reason: Chest Pain tizanidine 4 mg capsule 4 mg PO Q4HP PRN cap PRN Reason: muscle spasticity docusate sodium 250 mg capsule 250 mg PO BID cap cycloSPORINE [Restasis] 1 drop OP BID Calcium Polycarbophil [Fiber] 625 mg PO DAILY No Action multivitamin with minerals capsule 1 cap PO DAILY cap acetaminophen 500 mg capsule 500 mg PO Q4HP PRN PRN Reason: pain lactulose 10 gram/15 mL (15 mL) oral solution 20 gm PO DAILYP PRN ml PRN Reason: Constipation
== END 2018-08-15 11:20 | DRG 845 ==
LOC: ER 03:44 → 2ND 03:44
PROVIDERS: ADMIT Emergency Medicine; ATTEND Emergency Medicine
CPT/HCPCS: Q9967

== ENCOUNTER → 2018-09-03 16:02 | Outpatient (CLI) | payer MEDICARE, MEDICAID, SELFPAY ==
--- NOTE | 2018-09-03 16:14 | MM_ITS ---
MM Dig screening mamm BI w/CAD ORDERING PHYSICIAN : Michele Horner MD PATIENT AGE: 58 years GENDER: Female COMPARISON: Baseline mammogram None available. INDICATION: Routine screening. No hormones no new complaints noncontributory family history. TECHNIQUE: Standard CC and MLO images were obtained. R2 CAD reviewed. Additional axillary cc view as well as CC nipple profile views bilaterally are helpful FINDINGS: / . Low density breast with generalized fatty replacement. Only Minimal residual fibroglandular elements bilaterally.. No dominant mass nor suspicious calcification either breast. RIGHT BREAST:... Area labeled A: Small 6 mm nodular density lateral retroareolar region I believe this superior to the nipple.. This is labeled A. . Area labeled B small focal area, less than 5 mm. Most likely related to confluence venous structures towards upper-outer quadrant. Suggest spot MLO, CC and 90 degrees view right breast to further evaluate with subsequent breast ultrasound. LEFT BREAST:... . No areas of concern on the left. Follow-up in one year. ======IMPRESSION: RIGHT BREAST.: ... 2 small areas of benign-appearing nodularity right breast warrant additional views & ultrasound ... Area labeled A is at the lateral retroareolar region . Area labeled B may merely be a focal prominence of venous structures LEFT BREAST: No areas of concern. Follow-up in one year on the left. . Low-density breast bilateral BI-RADS Category: 0 Need Additional Imaging Evaluation RECOMMENDED FOLLOW-UP: IMM - IMMEDIATE FOLLOW-UP RECOMMENDED (A letter has been sent to the patient regarding results of the study.)
== END ==
PROVIDERS: PCP Emergency Medicine; Visit Provider Emergency Medicine
DX: Z12.31 Encounter for screening mammogram for malignant neoplasm of breast (principal)
CPT/HCPCS: 77067

== ENCOUNTER → 2018-09-09 16:40 | Outpatient (CLI) | payer MEDICARE, MEDICAID, SELFPAY | PROVIDERS: Visit Provider Urology | DX: R39.89 Other symptoms and signs involving the genitourinary system (principal); N39.0 Urinary tract infection, site not specified | CPT/HCPCS: 87086; 87088; 87186 ==

== ENCOUNTER → 2018-09-23 12:30 | Outpatient (CLI) | payer MEDICARE, MEDICAID, SELFPAY ==
--- NOTE | 2018-09-23 12:32 | US_ITS ---
MM Dig mamm DX unilat RT CAD, US breast RT complete INDICATION: Follow-up abnormal screening exam ORDERING PHYSICIAN: Michele Horner MD PATIENT AGE: 58 years COMPARISON: 09/03/2018 TECHNIQUE: Problem-solving views performed of the right breast along with] ultrasound FINDINGS: The asymmetric density in the lateral aspect of the right breast is felt to be due to overlying vessels. A persistent 3 mm x 4 mm nodular opacity is present in the deep outer aspect of the right breast. There is a 4 mm fairly well-circumscribed nodular density in the lateral periareolar region. The margins somewhat irregular. This however This corresponds to the nodule labeled as A on the screening exam. Right breast ultrasound: There was an 8 x 7 mm hypoechoic nodule in the subcutaneous region at 9:00 in the right breast. Slightly more hypoechoic than the overlying fibroglandular tissue but is felt to be more lateral and is larger than the mammographic abnormality. IMPRESSION: There are 2 right breast nodules 1 seen only on mammography in the lateral right periareolar region as well as an 8 x 7 mm hypoechoic nodule at 9:00 outer. Recommend biopsy of both nodules. The nodule in the periareolar region will need to be biopsied with stereotactic technique and the nodule 9:00 laterally can be biopsied with ultrasound guidance. BI-RADS Category: 4 Suspicious Abnormality-Biopsy Considered RECOMMENDED FOLLOW-UP: BIO - BIOPSY RECOMMENDED (A letter has been sent to the patient regarding results of the study.)
== END ==
PROVIDERS: PCP Emergency Medicine; Visit Provider Emergency Medicine
DX: R92.8 Other abnormal and inconclusive findings on diagnostic imaging of breast (principal)
CPT/HCPCS: 76641; 77065

== ENCOUNTER 2019-05-26 18:17 | Observation (INO) ==
[2019-05-26 18:32] LABS: Basophils % 0.3 % (0.1-2.0); Eosinophils # 0.1 K/mm3 (0.0-0.4); Eosinophils % 0.9 % (0.1-12.0); Hemoglobin 14.2 g/dL (12.2-16.2); Lymphocytes # 2.9 K/mm3 (0.7-4.5); Lymphocytes % 21.9 % (10-50); Mean Corpuscular HGB Conc 33.2 g/dL (31.8-35.4); Mean Corpuscular Volume 86.7 fl (81-99); Mean Platelet Volume 8.8 fl (7.4-10.4); Monocytes # 0.8 K/mm3 (0.1-1.0); Monocytes % 5.7 % (1.7-9.3); Neutrophils # 9.3 K/mm3 (1.8-7.8); Neutrophils % 71.1 % (37.0-80.0); Platelet Count 246 K/mm3 (142-424); Red Blood Count 4.96 M/mm3 (4.20-5.40); Red Cell Distribution Width 13.2 % (11.5-17.5); White Blood Count 13.1 K/mm3 (4.8-10.8)
[2019-05-26 18:46] LABS: Alanine Aminotransferase 21 U/L (12-78); Albumin Level 2.9 gm/dL (3.4-5.0); Albumin/Globulin Ratio 0.8 (1.1-1.8); Alkaline Phosphatase 100 U/L (46-116); Anion Gap 13.5 mEq/L (5-15); Aspartate Amino Transferase 7 U/L (15-37); Bilirubin,Total 0.2 mg/dL (0.2-1.0); Blood Urea Nitrogen 7 mg/dL (7-18); Calcium 8.4 mg/dL (8.5-10.1); Carbon Dioxide 28 mmol/L (21.0-32.0); Chloride 104 mmol/L (98-107); Globulin 3.7 gm/dl (1.3-3.2); Glucose 130 mg/dL (74-106); Sodium 142 mmol/L (136-145); Total Protein,Serum 6.6 gm/dL (6.4-8.2)
--- NOTE | 2019-05-26 19:02 | Emergency Department Note ---
ED Disposition Clinical Impression: Atypical chest pain Disposition: Still a Patient Condition on Discharge: Fair Referrals: Provider,Referral, [Primary Care Provider] - Time of Disposition: 20:33 (Pt's care was transferred to Dr. Horner.) - Critical Care Critical Care Time: No Attestation: On 05/26/19, the high probability of a clinically significant, sudden or life threatening deterioration of the following system(s) required my full and direct attention, intervention and personal management. The time I documented below is in addition to time spent performing reported procedures but includes the following listed in this critical care notation. Medical Decision Making - Rick Inquiry Pt receiving controlled substance: Yes Rick was queried for this patient: No Risks and benefits of using a controlled substance: were not discussed with pt by me Vital Signs: 05/26/19 18:18 Temperature 98 F Temperature Source Oral Pulse Rate [Right Radial] 62 Respiratory Rate 18 Blood Pressure [Right Arm] 103/66 L Blood Pressure Mean [Right Arm] 78 02 Sat by Pulse Oximetry 96 Oxygen Delivery Method Room Air - Lab Data Lab results reviewed: Yes: I reviewed the patient's lab results. Lab Results 05/26/19 18:15: WBC 13.1 H, RBC 4.96, Hgb 14.2, Hct 43.0, MCV 86.7, MCH 28.7, MCHC 33.2, RDW 13.2, Plt Count 246, MPV 8.8, Neut % (Auto) 71.1, Lymph % (Auto) 21.9, [place] % (Auto) 5.7, Eos % (Auto) 0.9, Baso % (Auto) 0.3, Neut # (Auto) 9.3 H, Lymph # (Auto) 2.9, [place] # (Auto) 0.8, Eos # (Auto) 0.1, Baso # (Auto) 0.0 05/26/19 18:15: Sodium 142, Potassium 3.5, Chloride 104, Carbon Dioxide 28, Anion Gap 13.5, BUN 7, Creatinine 0.74, Estimated Creat Clear 98, Estimated GFR 80, Est GFR ( Amer) 97, Glucose 130 H, Calcium 8.4 L, Total Bilirubin 0.2, AST 7 L, ALT 21, Alkaline Phosphatase 100, Troponin I < 0.02, Total Protein 6.6, Albumin 2.9 L, Globulin 3.7 H, Albumin/Globulin Ratio 0.8 L Result diagrams: 05/26/19 18:15 05/26/19 18:15 Orders (Tests/Meds): ORDERS Category Date Time Status Acute abdomen XR minimum 2 views [XR abdomen min 2V] Exams 05/26/19 19:02 Taken Stat XR chest portable Stat Exams 05/26/19 18:22 Taken Troponin I Q3H Lab 05/26/19 21:30 Ordered Troponin I Q3H Lab 05/27/19 00:30 Ordered - Radiology Data #1 Image(s): Chest Image Reviewed: Yes I reviewed the patient's radiology image No aucte Cardiopulmonary process. #2 Image(s): Abdomen Image Reviewed: Yes I reviewed the patient's radiology image X-ray of the abdomen pelvis is negative for any acute intra-abdominal or pelvic findings. - ECG Data Tracing #1 I reviewed this ECG and interpreted as documented below: EKG done at 1819 hrs. shows normal sinus rhythm with a heart rate of 61 bpm, normal P waves, normal IA interval, nonspecific ST-T changes. Normal QRS pattern, normal axis, the EKG is similar to the one done in 10/08/2018. - Physician Consults Physician Consulted: Dr. Horner Time: 20:15 Reason -: Other (Transfer of care pending repeat troponin and further cardiac work up.) - Reevaluation(s) Time: 20:00 Reevaluation #1: Has been stable throughout the course of stay in the ER. Chest Pain HPI - General Chief Complaint: Chest Pain Stated Complaint: chest pain Time Seen by Provider: 05/26/19 18:55 Mode of Arrival: EMS Source of Information: Patient Limitations: No Limitations Description of Symptoms (Recalled from ER Triage Doc. by RN): pt c/o midsternal heavy chest pain. - History of Present Illness HPI narrative: 59-year-old female was brought in by the EMS from the residential for having complaint of chest pain. Patient states she is hurting on the left side of the chest. The pain is sharp in nature. She is not a good historian. No information about the radiation of the pain. No history of nausea or vomiting. Onset (ago): hour(s) (About an hour ago) Duration: constant Activity at onset: other (Patient states she was smoking cigarettes when she felt the pain.) Pain location: left chest Severity: moderate Quality: sharp Risk Factors for CAD: Hypertension, Smoking - Related Data Home Medications Medication Instructions Recorded Confirmed acetaminophen 500 mg capsule 500 mg PO Q4HP PRN 07/26/17 05/14/19 bisacodyl 10 mg rectal suppository 10 mg RC Q72H PRN 07/26/17 05/14/19 docusate sodium 250 mg capsule 250 mg PO BID cap 07/26/17 05/14/19 gabapentin 300 mg capsule 300 mg PO QID cap 07/26/17 05/14/19 lactulose 10 gram/15 mL (15 mL) 20 gm PO DAILYP PRN ml 07/26/17 05/14/19 oral solution multivitamin with minerals 1 cap PO DAILY cap 07/26/17 05/14/19 nitroglycerin 0.4 mg sublingual 0.4 mg SUBLINGUAL Q5MINP PRN 07/26/17 05/14/19 tablet rivastigmine 9.5 mg TRANSDERMA DAILY each 07/26/17 05/14/19 tizanidine 4 mg capsule 4 mg PO Q4HP PRN cap 07/26/17 05/14/19 Calcium Polycarbophil [Fiber] 625 mg PO DAILY 08/14/18 05/14/19 cycloSPORINE [Restasis] 1 drp OP BID 08/14/18 05/14/19 Venlafaxine HCl [Effexor 37.5mg 37.5 mg PO BID 05/14/19 05/14/19 tablet] Previous Rx's Medication Instructions Recorded levoFLOXacin [Levaquin 500mg 500 mg PO DAILY #7 tab 05/14/19 tab] predniSONE [Prednisone 20mg 20 mg PO BID #10 tab 05/14/19 Tab] Allergies Allergy/AdvReac Type Severity Reaction Status Date / Time bee pollen Allergy Intermediate Unknown Verified 05/26/19 18:22 allergy reaction aspirin Allergy Unknown Unknown Verified 05/26/19 18:22 allergy reaction shellfish derived Allergy Unknown Unknown Verified 05/26/19 18:22 allergy reaction [facility] History - Hepatitis A Screen Drug use history?: No High risk sexual behaviors?: No History of sexually transmitted infection?: No Currently employed?: No Childcare worker?: No Do you have indoor plumbing?: Yes Do you have electricity?: Yes Attestation statement:: This patient has been screened for Hepatitis A risk factors. Medical History: Reports:: Cancer, Cerebrovascular Accident, Dementia, Depression, Hypertension, Urinary Tract Infection Denies:: Diabetes Mellitus Type 1, Diabetes Mellitus Type 2, Internal Pacemaker, MRSA, Seizures Other Medical History: Reports: Arthritis Comment: iatrogentic hypotension,neuromuscular dysfunction of bladder,spinal stenosis of sacral region,thiamine def,other psychoactive substance dependence Other Surgeries: Yes: Colonoscopy, Tubal Ligation. No: Pacemaker Amputation: Yes Fractures: No - Social History Smoking Status: Current every day smoker Tobacco Type: cigarettes # Packs/Day (cigarettes): 1 Alcohol Intake: never Alcohol Intake Frequency:: other Substance Use Type: denies use Occupational Status: disabled Housing: residential - Psychiatric History Pschychiatric History:: Reports:: Depression Family Hx:: Unable to obtain Comment: arthritis, ROS Obtained: Yes All systems reviewed & no additional complaints Physical Exam - General General appearance: alert, in no apparent distress - Head Head exam: atraumatic, normocephalic, normal inspection - Eye Eye exam: Present: normal appearance, PERRL, EOMI - ENT ENT exam: Present: normal exam, normal oropharynx, mucous membranes moist, normal external ear exam - Neck Neck exam: Present: normal inspection, full ROM, trachea midline - Chest Chest inspection: Present: normal inspection, symmetric chest wall rise. Absent: tenderness - Respiratory Respiratory exam: Present: normal lung sounds bilaterally. Absent: respiratory distress - Cardiovascular Cardiovascular exam: Present: regular rate, normal rhythm. Absent: JVD - Abdominal Exam Abdominal exam: Present: soft, distention, tenderness (Mild degree of tenderness throughout the abdomen. Questionable fecal matter throughout the abdomen. The exam is suggestive of possible constipation.), normal bowel sounds. Absent: guarding - Extremities Exam Extremities exam: Present: normal inspection, full ROM, normal capillary refill. Absent: calf tenderness - Back Exam Back exam: Present: normal inspection. Absent: tenderness - Neurological Exam Neurological exam: Present: alert, CN II-XII intact, other (Patient does not know where she is. She does not know where she lives.) - Psychiatric Psychiatric exam: Present: normal mood - Skin Skin exam: Present: warm, dry, intact, normal color
[2019-05-26 21:18] LABS: Amylase 26 U/L (25-115)
[2019-05-27 07:13] LABS: Anion Gap 10.5 mEq/L (5-15); Calcium 8.5 mg/dL (8.5-10.1)
[2019-05-27 07:26] LABS: Basophils % 0.2 % (0.1-2.0); Eosinophils # 0.2 K/mm3 (0.0-0.4); Eosinophils % 1.7 % (0.1-12.0); Hematocrit 44.8 % (37.0-47.0); Hemoglobin 14.6 g/dL (12.2-16.2); Lymphocytes # 2.9 K/mm3 (0.7-4.5); Lymphocytes % 27.7 % (10-50); Mean Corpuscular HGB Conc 32.5 g/dL (31.8-35.4); Mean Corpuscular Volume 87.1 fl (81-99); Mean Platelet Volume 9.3 fl (7.4-10.4); Monocytes # 0.8 K/mm3 (0.1-1.0); Monocytes % 7.6 % (1.7-9.3); Neutrophils # 6.6 K/mm3 (1.8-7.8); Neutrophils % 62.8 % (37.0-80.0); Platelet Count 224 K/mm3 (142-424); Red Blood Count 5.14 M/mm3 (4.20-5.40); Red Cell Distribution Width 13.1 % (11.5-17.5); White Blood Count 10.5 K/mm3 (4.8-10.8)
--- NOTE | 2019-05-27 07:34 | Pharmacy Consult Notes ---
[facility] VTE Monitoring - Patient Demographics Admission date: 05/27/19 Report Date: 05/27/19 Time: 07:34 Allergies/Adverse Reactions: Patient Allergies bee pollen Allergy (Intermediate, Verified 05/26/19 18:22) Unknown allergy reaction aspirin Allergy (Unknown, Verified 05/26/19 18:22) Unknown allergy reaction shellfish derived Allergy (Unknown, Verified 05/26/19 18:22) Unknown allergy reaction Height: 1.57 m Weight: 69.144 kg Patient Problems: Current Active Problems Atypical chest pain (Acute) - VTE Risk Labs: VTE Related Lab Results Hgb 14.6 g/dL (12.2-16.2) 05/27/19 06:30 Hct 44.8 % (37.0-47.0) 05/27/19 06:30 Plt Count 224 K/mm3 (142-424) 05/27/19 06:30 BUN 4 mg/dL (7-18) L D 05/27/19 06:30 Creatinine 0.61 mg/dL (0.55-1.02) 05/27/19 06:30 Estimated Creat Clear 107 mL/min (50-200) 05/27/19 06:30 Was VTE Risk Assessment Performed: No VTE Score: 4 VTE Risk Level: Low Risk Clinical Trial Participant: No - Prophylaxis VTE Prophylaxis Ordered?: Yes Types of VTE Prophylaxis: TEDS Knee High Location of Applied Device: Bilateral Lower Extremeties
--- NOTE | 2019-05-27 09:26 | Consult Report ---
History of Present Illness Consult date: 05/27/19 Requesting physician: Michele Horner Consult reason: chest pain Chief complaint: chest pain Additional Medical History:: 1. CVA 2. HTN 3. CAD 4. ANEURYSM 5. DEMENTIA 6. DEPRESSION History of present illness: This is a 59-year-old white female who presented to the emergency department from the halfway with complaints of chest pain. The patient states that she was having a pressure in the center of her chest that radiated to her back. She states that this was a 5 out of 10 in intensity. She states that nothing was making her chest pain worse and nothing was making it better. She states that the chest pain started suddenly while she was smoking cigarettes. That is all the information that I can get from the patient about her chest pain. She does have dementia and a history of a CVA. She is a very poor historian. She cannot tell me anything about her family history and she cannot tell me anything about her personal history. Most of the information on this patient has been gathered from her chart here at [facility]. She does have a history of coronary artery disease with a 40 to 50% lesion to her right coronary artery in 2018. She does smoke about 1 pack/day. She is allergic to aspirin. She denies any fever, chills, nausea, vomiting, diarrhea, PND or orthopnea. [facility] History I have reviewed the patient's past medical history: Yes Medical History: Reports:: Aneurysm, Cancer, Coronary Artery Disease, Cerebrovascular Accident, Dementia, Depression, Hypertension, Urinary Tract Infection Denies:: Diabetes Mellitus Type 1, Diabetes Mellitus Type 2, Internal Pacemaker, MRSA, Seizures *Have you ever received a pneumonia vaccine?: Yes *Have you received a flu vaccine this season?: Yes Other Medical History: Reports: Arthritis Other Surgeries: Yes: Colonoscopy, Tubal Ligation. No: Pacemaker Amputation: Yes Fractures: No - *Social History Educational Level: Attended High School Smoking Status: Current every day smoker Tobacco Type: cigarettes # Packs/Day (cigarettes): 1 Alcohol Intake: former Alcohol Intake Frequency:: other Substance Use Type: unknown *Occupational Status:: disabled Housing: halfway *Travel in the last 8 weeks: None - Psychiatric History Pschychiatric History:: Reports:: Depression Family Hx:: Unable to obtain Meds Home Medications Medication Instructions Recorded Confirmed Type acetaminophen 500 mg capsule 500 mg PO Q4HP PRN 07/26/17 05/27/19 History bisacodyl 10 mg rectal suppository 10 mg RC Q72H PRN 07/26/17 05/27/19 History docusate sodium 250 mg capsule 250 mg PO BID cap 07/26/17 05/27/19 History gabapentin 300 mg capsule 300 mg PO QID cap 07/26/17 05/27/19 History lactulose 10 gram/15 mL (15 mL) 20 gm PO DAILYP PRN ml 07/26/17 05/27/19 History oral solution multivitamin with minerals 1 cap PO DAILY cap 07/26/17 05/27/19 History nitroglycerin 0.4 mg sublingual 0.4 mg SUBLINGUAL Q5MINP PRN 07/26/17 05/27/19 History tablet rivastigmine 9.5 mg TRANSDERMA DAILY each 07/26/17 05/27/19 History tizanidine 4 mg capsule 4 mg PO Q4HP PRN cap 07/26/17 05/27/19 History Calcium Polycarbophil [Fiber] 625 mg PO BID 08/14/18 05/27/19 History cycloSPORINE [Restasis] 1 drp OP BID 08/14/18 05/26/19 History Venlafaxine HCl [Effexor 37.5mg 37.5 mg PO BID 05/14/19 05/27/19 History tablet] levoFLOXacin [Levaquin 500mg 500 mg PO DAILY 05/26/19 05/27/19 History tab] Mag Carb/Aluminum Hydrox/Algin 30 ml PO Q4HP PRN 05/27/19 05/27/19 History [Gaviscon Liquid] Allergies Allergy/AdvReac Type Severity Reaction Status Date / Time bee pollen Allergy Intermediate Unknown Verified 05/26/19 18:22 allergy reaction aspirin Allergy Unknown Unknown Verified 05/26/19 18:22 allergy reaction shellfish derived Allergy Unknown Unknown Verified 05/26/19 18:22 allergy reaction Review of Systems - Review of Systems Review of systems:: pertinent systems reviewed and negative unless documented below - *Cardiovascular Reports chest pain, Reports chest pain at rest, Reports chest pain with activity, Reports radiating jaw, neck or arm pain (To her back) - *Respiratory Reports shortness of breath, Reports shortness of breath with activity Exam Vital signs and Labs for Last 24 Hours: Temp Pulse Resp BP Pulse Ox 97.6 F 66 18 129/50 L 96 05/27/19 08:00 05/27/19 08:00 05/27/19 08:00 05/27/19 08:00 05/27/19 08:00 Laboratory Results - last 24 hr 05/26/19 18:15: WBC 13.1 H, RBC 4.96, Hgb 14.2, Hct 43.0, MCV 86.7, MCH 28.7, MCHC 33.2, RDW 13.2, Plt Count 246, MPV 8.8, Neut % (Auto) 71.1, Lymph % (Auto) 21.9, [place] % (Auto) 5.7, Eos % (Auto) 0.9, Baso % (Auto) 0.3, Neut # (Auto) 9.3 H, Lymph # (Auto) 2.9, [place] # (Auto) 0.8, Eos # (Auto) 0.1, Baso # (Auto) 0.0 05/26/19 18:15: Sodium 142, Potassium 3.5, Chloride 104, Carbon Dioxide 28, Anion Gap 13.5, BUN 7, Creatinine 0.74, Estimated Creat Clear 98, Estimated GFR 80, Est GFR ( Amer) 97, Glucose 130 H, Calcium 8.4 L, Total Bilirubin 0.2, AST 7 L, ALT 21, Alkaline Phosphatase 100, Troponin I < 0.02, Total Protein 6.6, Albumin 2.9 L, Globulin 3.7 H, Albumin/Globulin Ratio 0.8 L 05/26/19 18:15: Amylase 26, Lipase 100 05/26/19 21:40: Troponin I < 0.02 05/27/19 00:35: Troponin I < 0.02 05/27/19 06:30: WBC 10.5, RBC 5.14, Hgb 14.6, Hct 44.8, MCV 87.1, MCH 28.3, MCHC 32.5, RDW 13.1, Plt Count 224, MPV 9.3, Neut % (Auto) 62.8, Lymph % (Auto) 27.7, [place] % (Auto) 7.6, Eos % (Auto) 1.7, Baso % (Auto) 0.2, Neut # (Auto) 6.6, Lymph # (Auto) 2.9, [place] # (Auto) 0.8, Eos # (Auto) 0.2, Baso # (Auto) 0.0 05/27/19 06:30: Sodium 144, Potassium 3.5, Chloride 109 H, Carbon Dioxide 28, Anion Gap 10.5, BUN 4 L D, Creatinine 0.61, Estimated Creat Clear 107, Estimated GFR 100, Est GFR ( Amer) 121 D, Glucose 100 D, Calcium 8.5 I & O for Last 24 hours: Intake & Output 05/24/19 05/25/19 05/26/19 05/27/19 23:59 23:59 23:59 23:59 Intake Total 120 / 120 244 / 244 Balance 120 / 120 244 / 244 Weight 152 lb 7 oz 152 lb 7 oz Narrative: EKG is sinus rhythm with nonspecific T wave abnormalities and a rate of 61. Telemetry strip is sinus rhythm with a rate of 69. - *Routine HEENT Exam Head: Present: normocephalic, atraumatic Eye: Present: EOMI, PERRL ENT: Present: mucous membranes moist - *Routine Neck Exam Present: supple, full ROM, normal carotid upstroke. Absent: JVD, carotid bruit, lymphadenopathy - *Routine Respiratory Exam Present: CTA bilaterally - *Routine Cardiovascular Exam Present: RRR, Normal S1, Normal S2, murmur. Absent: gallop - *Routine Abdominal Exam Present: soft, normoactive bowel sounds. Absent: tenderness, distended, rebound - *Routine Extremities Exam Present: full ROM, pulses intact, normal capillary refill. Absent: cyanosis, clubbing, edema - *Routine Skin Exam Present: intact, warm. Absent: erythema, rash - *Routine Neurological Exam Present: alert, oriented X3, CN II-XII intact. Absent: sensory deficit, motor deficit - Routine Psychiatric Exam Present: normal affect - Detailed Eye Exam Eyelids: Left normal inspection Assessment and Plan (1) Atypical chest pain Current visit: Yes Status: Acute Category: Medical Code(s): R07.89 - Other chest pain (2) CAD (coronary artery disease), [place] coronary artery Current visit: No Status: Chronic Qualifiers: [place] vs. transplanted heart: [place] heart Associated angina: without angina Qualified Code(s): I25.10 - Atherosclerotic heart disease of [place] coronary artery without angina pectoris Category: Medical Code(s): I25.10 - Atherosclerotic heart disease of [place] coronary artery without angina pectoris (3) History of cerebrovascular accident (CVA) in adulthood Current visit: Yes Status: Chronic Category: Medical Code(s): Z86.73 - Personal history of transient ischemic attack (TIA), and cerebral infarction without residual deficits (4) Dementia Current visit: No Status: Chronic Qualifiers: Dementia type: unspecified type Dementia behavioral disturbance: without behavioral disturbance Qualified Code(s): F03.90 - Unspecified dementia without behavioral disturbance Category: Medical Code(s): F03.90 - Unspecified dementia without behavioral disturbance (5) Tobacco abuse Current visit: No Status: Chronic Category: Medical Code(s): Z72.0 - Tobacco use - Assessment and plan all Dx Assessment and Plan for all problems:: Plan: 1. The patient was admitted to the hospital with chest pain. She is a very poor historian so getting information from her is very difficult. She does state that the chest pain started while she is smoking and is a heavy pressure sensation. It did radiate to her back. She states that this only lasted for about 1 minute and then resolved. She does have known coronary artery disease with a 40 to 50% stenosis to her right coronary artery in 2018. We will set the patient up for Lexiscan Myoview stress test to rule out ischemia. 2. We will set the patient up for an echocardiogram to evaluate her LV fun ction. She does have a murmur as well. 3. Her blood pressure is well controlled. 4. Her LDL goal is less than 55. We will get a lipid panel today. We will start her on Lipitor 20 mg p.o. daily due to her history of coronary artery disease. 5. The patient is allergic to aspirin. 6. The patient is on no antianginals. Her heart rate is too low to add a beta- black. We will start her on Norvasc 2.5 mg p.o. daily for her angina. 7. Tobacco cessation is highly advised and counseled. 8. Further recommendations will be made pending the patient's response to treatment and the results of her Lexiscan and echocardiogram today. Thank you for the opportunity to help participate in the care of this patient.
[2019-05-27 09:55] LABS: Chol/HDL Ratio 5.3 (1-3.5)
--- NOTE | 2019-05-27 10:29 | History & Physical Report ---
*Admission Date: 05/27/19 *Chief complaint: Chest Pain *History of present illness: This is a 59-year-old white female who presented to the emergency department from the group home with complaints of chest pain. The patient states that she was having a pressure in the center of her chest that radiated to her back. She states that this was a 5 out of 10 in intensity. She states that nothing was making her chest pain worse and nothing was making it better. She states that the chest pain started suddenly while she was smoking cigarettes. That is all the information that I can get from the patient about her chest pain. She does have dementia and a history of a CVA. She is a very poor historian. She cannot tell me anything about her family history and she cannot tell me anything about her personal history. Most of the information on this patient has been gathered from her chart here at [facility]. She does have a history of coronary artery disease with a 40 to 50% lesion to her right coronary artery in 2018. She does smoke about 1 pack/day. She is allergic to aspirin. She denies any fever, chills, nausea, vomiting, diarrhea, PND or orthopnea (Per [employer]). [facility] History Medical History: Reports:: Aneurysm, Cancer, Coronary Artery Disease, Cerebrovascular Accident, Dementia, Depression, Hypertension, Urinary Tract Infection Denies:: Diabetes Mellitus Type 1, Diabetes Mellitus Type 2, Internal Pacemaker, MRSA, Seizures *Have you ever received a pneumonia vaccine?: Yes *Have you received a flu vaccine this season?: Yes Other Medical History: Reports: Arthritis Other Surgeries: Yes: Colonoscopy, Tubal Ligation. No: Pacemaker Amputation: Yes Fractures: No - *Social History Educational Level: Attended High School Smoking Status: Current every day smoker Tobacco Type: cigarettes # Packs/Day (cigarettes): 1 Alcohol Intake: former Alcohol Intake Frequency:: other Substance Use Type: unknown *Occupational Status:: disabled Housing: group home *Travel in the last 8 weeks: None - Psychiatric History Pschychiatric History:: Reports:: Depression Family Hx:: Unable to obtain Review of Systems - Review of Systems Review of systems:: pertinent systems reviewed and negative unless documented below - Constitutional Denies body ache(s) - Eyes Denies blurry vision, Denies change in vision - ENT Denies dizziness, Denies headache(s) - *Cardiovascular Reports chest pain, Reports chest pain at rest, Reports radiating jaw, neck or arm pain - *Respiratory Reports shortness of breath, Reports shortness of breath with activity, Denies chest congestion - *Gastrointestinal Denies abdominal pain, Denies change in bowel habits - *Musculoskeletal Denies joint pain - Integumentary/Breasts Denies hair loss, Denies lesions - *Neurologic Denies seizure-like activity, Denies dizziness - Psychiatric Denies abnormal sleep pattern, Denies thoughts of hurting/killing others - Endocrine Denies cold intolerance - Hematologic/Lymphatic Denies easy bleeding, Denies easy bruising - Allergic/Immunologic Denies throat swelling Meds Home Medications Medication Instructions Recorded Confirmed Type acetaminophen 500 mg capsule 500 mg PO Q4HP PRN 07/26/17 05/27/19 History bisacodyl 10 mg rectal suppository 10 mg RC Q72H PRN 07/26/17 05/27/19 History docusate sodium 250 mg capsule 250 mg PO BID cap 07/26/17 05/27/19 History gabapentin 300 mg capsule 300 mg PO QID cap 07/26/17 05/27/19 History lactulose 10 gram/15 mL (15 mL) 20 gm PO DAILYP PRN ml 07/26/17 05/27/19 History oral solution multivitamin with minerals 1 cap PO DAILY cap 07/26/17 05/27/19 History nitroglycerin 0.4 mg sublingual 0.4 mg SUBLINGUAL Q5MINP PRN 07/26/17 05/27/19 History tablet rivastigmine 9.5 mg TRANSDERMA DAILY each 07/26/17 05/27/19 History tizanidine 4 mg capsule 4 mg PO Q4HP PRN cap 07/26/17 05/27/19 History Calcium Polycarbophil [Fiber] 625 mg PO BID 08/14/18 05/27/19 History cycloSPORINE [Restasis] 1 drp OP BID 08/14/18 05/26/19 History Venlafaxine HCl [Effexor 37.5mg 37.5 mg PO BID 05/14/19 05/27/19 History tablet] levoFLOXacin [Levaquin 500mg 500 mg PO DAILY 05/26/19 05/27/19 History tab] Mag Carb/Aluminum Hydrox/Algin 30 ml PO Q4HP PRN 05/27/19 05/27/19 History [Gaviscon Liquid] Allergies Allergy/AdvReac Type Severity Reaction Status Date / Time bee pollen Allergy Intermediate Unknown Verified 05/26/19 18:22 allergy reaction aspirin Allergy Unknown Unknown Verified 05/26/19 18:22 allergy reaction shellfish derived Allergy Unknown Unknown Verified 05/26/19 18:22 allergy reaction Exam Vital signs and Labs for Last 24 Hours: Temp Pulse Resp BP Pulse Ox 97.6 F 66 18 129/50 L 96 05/27/19 08:00 05/27/19 08:00 05/27/19 08:00 05/27/19 08:00 05/27/19 08:00 Laboratory Results - last 24 hr 05/26/19 18:15: WBC 13.1 H, RBC 4.96, Hgb 14.2, Hct 43.0, MCV 86.7, MCH 28.7, MCHC 33.2, RDW 13.2, Plt Count 246, MPV 8.8, Neut % (Auto) 71.1, Lymph % (Auto) 21.9, [place] % (Auto) 5.7, Eos % (Auto) 0.9, Baso % (Auto) 0.3, Neut # (Auto) 9.3 H, Lymph # (Auto) 2.9, [place] # (Auto) 0.8, Eos # (Auto) 0.1, Baso # (Auto) 0.0 05/26/19 18:15: Sodium 142, Potassium 3.5, Chloride 104, Carbon Dioxide 28, Anion Gap 13.5, BUN 7, Creatinine 0.74, Estimated Creat Clear 98, Estimated GFR 80, Est GFR ( Amer) 97, Glucose 130 H, Calcium 8.4 L, Total Bilirubin 0.2, AST 7 L, ALT 21, Alkaline Phosphatase 100, Troponin I < 0.02, Total Protein 6.6, Albumin 2.9 L, Globulin 3.7 H, Albumin/Globulin Ratio 0.8 L 05/26/19 18:15: Amylase 26, Lipase 100 05/26/19 21:40: Troponin I < 0.02 05/27/19 00:35: Troponin I < 0.02 05/27/19 06:30: WBC 10.5, RBC 5.14, Hgb 14.6, Hct 44.8, MCV 87.1, MCH 28.3, MCHC 32.5, RDW 13.1, Plt Count 224, MPV 9.3, Neut % (Auto) 62.8, Lymph % (Auto) 27.7, [place] % (Auto) 7.6, Eos % (Auto) 1.7, Baso % (Auto) 0.2, Neut # (Auto) 6.6, Lymph # (Auto) 2.9, [place] # (Auto) 0.8, Eos # (Auto) 0.2, Baso # (Auto) 0.0 05/27/19 06:30: Sodium 144, Potassium 3.5, Chloride 109 H, Carbon Dioxide 28, Anion Gap 10.5, BUN 4 L D, Creatinine 0.61, Estimated Creat Clear 107, Estimated GFR 100, Est GFR ( Amer) 121 D, Glucose 100 D, Calcium 8.5 05/27/19 06:30: Triglycerides 126, Cholesterol 218 H, LDL Cholesterol 152 H, VLDL Cholesterol 25, HDL Cholesterol 41, Cholesterol/HDL Ratio 5.3 H I & O for Last 24 hours: Intake & Output 05/24/19 05/25/19 05/26/19 05/27/19 23:59 23:59 23:59 23:59 Intake Total 120 / 120 244 / 244 Balance 120 / 120 244 / 244 Weight 152 lb 7 oz 152 lb 7 oz - Constitutional no acute distress - *Routine HEENT Exam Head: Present: normocephalic. Absent: tenderness of temporal artery Eye: Present: EOMI, PERRL. Absent: periorbital swelling ENT: Present: mucous membranes moist. Absent: sinus tenderness - *Routine Neck Exam Present: supple, full ROM. Absent: JVD - *Routine Respiratory Exam Present: CTA bilaterally. Absent: accessory muscle use - *Routine Cardiovascular Exam Present: RRR, murmur - *Routine Abdominal Exam Present: soft, normoactive bowel sounds. Absent: tenderness, firm - *Routine Extremities Exam Present: full ROM, pulses intact. Absent: cyanosis, calf tenderness - Routine Back/Spine/Pelvis Exam Back/Spine: Present: full ROM. Absent: CVA tenderness - *Routine Skin Exam Present: intact, warm. Absent: cyanosis, erythema - *Routine Neurological Exam Present: alert, CN II-XII intact. Absent: sensory deficit, motor deficit - Routine Psychiatric Exam Present: normal affect. Absent: anxious Assessment and Plan (1) Atypical chest pain Current visit: Yes Status: Acute Category: Medical Code(s): R07.89 - Other chest pain (2) CAD (coronary artery disease), [place] coronary artery Current visit: No Status: Chronic Qualifiers: [place] vs. transplanted heart: [place] heart Associated angina: without angina Qualified Code(s): I25.10 - Atherosclerotic heart disease of [place] coronary artery without angina pectoris Category: Medical Code(s): I25.10 - Atherosclerotic heart disease of [place] coronary artery without angina pectoris (3) History of cerebrovascular accident (CVA) in adulthood Current visit: Yes Status: Chronic Category: Medical Code(s): Z86.73 - Personal history of transient ischemic attack (TIA), and cerebral infarction without residual deficits (4) Dementia Current visit: No Status: Chronic Qualifiers: Dementia type: unspecified type Dementia behavioral disturbance: without behavioral disturbance Qualified Code(s): F03.90 - Unspecified dementia without behavioral disturbance Category: Medical Code(s): F03.90 - Unspecified dementia without behavioral disturbance (5) Tobacco abuse Current visit: No Status: Chronic Category: Medical Code(s): Z72.0 - Tobacco use (6) Cholelithiasis Current visit: No Status: Acute Qualifiers: Cholelithiasis location: gallbladder Cholecystitis presence: without cholecystitis Biliary obstruction: without biliary obstruction Qualified Code(s): K80.20 - Calculus of gallbladder without cholecystitis without obstruction Category: Medical Code(s): K80.20 - Calculus of gallbladder without cholecystitis without obstruction - Assessment and plan all Dx Assessment and Plan for all problems:: Rounded w/ Dr. Horner, all orders per Dr. Horner 1. 05/27 GB U/S: IMPRESSION: Cholelithiasis with thickened gallbladder wall and minimal amount of pericholecystic fluid suggesting acute cholecystitis. Common duct upper normal at 6 mm Dictated by: Dr. Amin 2. Gen Surg referral Cards has seen and Rec: 1. The patient was admitted to the hospital with chest pain. She is a very poor historian so getting information from her is very difficult. She does state that the chest pain started while she is smoking and is a heavy pressure sensation. It did radiate to her back. She states that this only lasted for about 1 minute and then resolved. She does have known coronary artery disease with a 40 to 50% stenosis to her right coronary artery in 2018. We will set the patient up for Lexiscan Myoview stress test to rule out ischemia. 2. We will set the patient up for an echocardiogram to evaluate her LV function. She does have a murmur as well. 3. Her blood pressure is well controlled. 4. Her LDL goal is less than 55. We will get a lipid panel today. We will start her on Lipitor 20 mg p.o. daily due to her history of coronary artery disease. 5. The patient is allergic to aspirin. 6. The patient is on no antianginals. Her heart rate is too low to add a beta- black. We will start her on Norvasc 2.5 mg p.o. daily for her angina. 7. Tobacco cessation is highly advised and counseled. 8. Further recommendations will be made pending the patient's response to treatment and the results of her Lexiscan and echocardiogram today.
--- NOTE | 2019-05-27 12:29 | Consult Report ---
*Admission Date: 05/27/19 *Reason for consult:: Gallbladder *History of present illness: Patient is a 59-year-old female snf patient with history of coronary artery disease with previously documented right coronary artery stenosis of 50% which have been managed medically, history of previous CVA, reported dementia. She is a poor historian. She has known documented gallstones from previous CT angiogram greater than 2 years ago. She presented to the emergency department yesterday with midsternal chest pain. She was admitted for inpatient management. She underwent gallbladder ultrasound this morning which revealed findings of gallstones and pericholecystic fluid. Surgical consultation and cardiology consultations were obtained. Patient has been out of room off the floor for much of the day undergoing cardiac evaluation with nuclear medicine cardiac stress testing. Currently, upon return to the floor she is without complaints. She denies any chest pain. She states that she is never had any abdominal pain. She is unable to relate any particular activity or food intake to the onset of her symptoms. She denies nausea. Review of Systems - Review of Systems Review of systems:: unable to obtain [facility] History I have reviewed the patient's past medical history: Yes Medical History: Reports:: Aneurysm, Cancer, Coronary Artery Disease, Cerebrovascular Accident, Dementia, Depression, Hypertension, Urinary Tract Infection Denies:: Diabetes Mellitus Type 1, Diabetes Mellitus Type 2, Internal Pacemaker, MRSA, Seizures *Have you ever received a pneumonia vaccine?: Yes *Have you received a flu vaccine this season?: Yes Other Medical History: Reports: Arthritis Other Surgeries: Yes: Colonoscopy, Tubal Ligation. No: Pacemaker Amputation: Yes Fractures: No - *Social History Educational Level: Attended High School Smoking Status: Current every day smoker Tobacco Type: cigarettes # Packs/Day (cigarettes): 1 Alcohol Intake: former Alcohol Intake Frequency:: other Substance Use Type: unknown *Occupational Status:: disabled Housing: snf *Travel in the last 8 weeks: None - Psychiatric History Pschychiatric History:: Reports:: Depression Family Hx:: Unable to obtain [facility] Medications Medication Instructions Recorded Confirmed Type acetaminophen 500 mg capsule 500 mg PO Q4HP PRN 07/26/17 05/27/19 History bisacodyl 10 mg rectal suppository 10 mg RC Q72H PRN 07/26/17 05/27/19 History docusate sodium 250 mg capsule 250 mg PO BID cap 07/26/17 05/27/19 History gabapentin 300 mg capsule 300 mg PO QID cap 07/26/17 05/27/19 History lactulose 10 gram/15 mL (15 mL) 20 gm PO DAILYP PRN ml 07/26/17 05/27/19 History oral solution multivitamin with minerals 1 cap PO DAILY cap 07/26/17 05/27/19 History nitroglycerin 0.4 mg sublingual 0.4 mg SUBLINGUAL Q5MINP PRN 07/26/17 05/27/19 History tablet rivastigmine 9.5 mg TRANSDERMA DAILY each 07/26/17 05/27/19 History tizanidine 4 mg capsule 4 mg PO Q4HP PRN cap 07/26/17 05/27/19 History Calcium Polycarbophil [Fiber] 625 mg PO BID 08/14/18 05/27/19 History cycloSPORINE [Restasis] 1 drp OP BID 08/14/18 05/26/19 History Venlafaxine HCl [Effexor 37.5mg 37.5 mg PO BID 05/14/19 05/27/19 History tablet] levoFLOXacin [Levaquin 500mg 500 mg PO DAILY 05/26/19 05/27/19 History tab] Mag Carb/Aluminum Hydrox/Algin 30 ml PO Q4HP PRN 05/27/19 05/27/19 History [Gaviscon Liquid] Allergies Allergy/AdvReac Type Severity Reaction Status Date / Time bee pollen Allergy Intermediate Unknown Verified 05/26/19 18:22 allergy reaction aspirin Allergy Unknown Unknown Verified 05/26/19 18:22 allergy reaction shellfish derived Allergy Unknown Unknown Verified 05/26/19 18:22 allergy reaction Exam Vital signs and Labs for Last 24 Hours: Temp Pulse Resp BP Pulse Ox 98.1 F 74 18 82/54 L 98 05/27/19 12:00 05/27/19 12:00 05/27/19 12:00 05/27/19 12:00 05/27/19 12:00 Laboratory Results - last 24 hr 05/26/19 18:15: WBC 13.1 H, RBC 4.96, Hgb 14.2, Hct 43.0, MCV 86.7, MCH 28.7, MCHC 33.2, RDW 13.2, Plt Count 246, MPV 8.8, Neut % (Auto) 71.1, Lymph % (Auto) 21.9, [place] % (Auto) 5.7, Eos % (Auto) 0.9, Baso % (Auto) 0.3, Neut # (Auto) 9.3 H, Lymph # (Auto) 2.9, [place] # (Auto) 0.8, Eos # (Auto) 0.1, Baso # (Auto) 0.0 05/26/19 18:15: Sodium 142, Potassium 3.5, Chloride 104, Carbon Dioxide 28, Anion Gap 13.5, BUN 7, Creatinine 0.74, Estimated Creat Clear 98, Estimated GFR 80, Est GFR ( Amer) 97, Glucose 130 H, Calcium 8.4 L, Total Bilirubin 0.2, AST 7 L, ALT 21, Alkaline Phosphatase 100, Troponin I < 0.02, Total Protein 6.6, Albumin 2.9 L, Globulin 3.7 H, Albumin/Globulin Ratio 0.8 L 05/26/19 18:15: Amylase 26, Lipase 100 05/26/19 21:40: Troponin I < 0.02 05/27/19 00:35: Troponin I < 0.02 05/27/19 06:30: WBC 10.5, RBC 5.14, Hgb 14.6, Hct 44.8, MCV 87.1, MCH 28.3, MCHC 32.5, RDW 13.1, Plt Count 224, MPV 9.3, Neut % (Auto) 62.8, Lymph % (Auto) 27.7, [place] % (Auto) 7.6, Eos % (Auto) 1.7, Baso % (Auto) 0.2, Neut # (Auto) 6.6, Lymph # (Auto) 2.9, [place] # (Auto) 0.8, Eos # (Auto) 0.2, Baso # (Auto) 0.0 05/27/19 06:30: Sodium 144, Potassium 3.5, Chloride 109 H, Carbon Dioxide 28, Anion Gap 10.5, BUN 4 L D, Creatinine 0.61, Estimated Creat Clear 107, Estimated GFR 100, Est GFR ( Amer) 121 D, Glucose 100 D, Calcium 8.5 05/27/19 06:30: Triglycerides 126, Cholesterol 218 H, LDL Cholesterol 152 H, VLDL Cholesterol 25, HDL Cholesterol 41, Cholesterol/HDL Ratio 5.3 H I & O for Last 24 hours: Intake & Output 05/25/19 05/26/19 05/27/19 05/28/19 11:59 11:59 11:59 11:59 Intake Total 364 / 364 Balance 364 / 364 Weight 152 lb 7 oz Narrative: Patient is in no acute distress. On examination her abdomen is soft and nontender. No guarding or rebound. No Ramos sign. There is a well-healed laparoscopy scar at her umbilicus. Results - Labs 05/27/19 06:30 05/27/19 06:30 Laboratory Results - last 24 hr 05/26/19 18:15: WBC 13.1 H, RBC 4.96, Hgb 14.2, Hct 43.0, MCV 86.7, MCH 28.7, MCHC 33.2, RDW 13.2, Plt Count 246, MPV 8.8, Neut % (Auto) 71.1, Lymph % (Auto) 21.9, [place] % (Auto) 5.7, Eos % (Auto) 0.9, Baso % (Auto) 0.3, Neut # (Auto) 9.3 H, Lymph # (Auto) 2.9, [place] # (Auto) 0.8, Eos # (Auto) 0.1, Baso # (Auto) 0.0 05/26/19 18:15: Sodium 142, Potassium 3.5, Chloride 104, Carbon Dioxide 28, Anion Gap 13.5, BUN 7, Creatinine 0.74, Estimated Creat Clear 98, Estimated GFR 80, Est GFR ( Amer) 97, Glucose 130 H, Calcium 8.4 L, Total Bilirubin 0.2, AST 7 L, ALT 21, Alkaline Phosphatase 100, Troponin I < 0.02, Total Protein 6.6, Albumin 2.9 L, Globulin 3.7 H, Albumin/Globulin Ratio 0.8 L 05/26/19 18:15: Amylase 26, Lipase 100 05/26/19 21:40: Troponin I < 0.02 05/27/19 00:35: Troponin I < 0.02 05/27/19 06:30: WBC 10.5, RBC 5.14, Hgb 14.6, Hct 44.8, MCV 87.1, MCH 28.3, MCHC 32.5, RDW 13.1, Plt Count 224, MPV 9.3, Neut % (Auto) 62.8, Lymph % (Auto) 27.7, [place] % (Auto) 7.6, Eos % (Auto) 1.7, Baso % (Auto) 0.2, Neut # (Auto) 6.6, Lymph # (Auto) 2.9, [place] # (Auto) 0.8, Eos # (Auto) 0.2, Baso # (Auto) 0.0 05/27/19 06:30: Sodium 144, Potassium 3.5, Chloride 109 H, Carbon Dioxide 28, Anion Gap 10.5, BUN 4 L D, Creatinine 0.61, Estimated Creat Clear 107, Estimated GFR 100, Est GFR ( Amer) 121 D, Glucose 100 D, Calcium 8.5 05/27/19 06:30: Triglycerides 126, Cholesterol 218 H, LDL Cholesterol 152 H, VLDL Cholesterol 25, HDL Cholesterol 41, Cholesterol/HDL Ratio 5.3 H Assessment and Plan (1) Atypical chest pain Current visit: Yes Status: Acute Category: Medical Code(s): R07.89 - Other chest pain (2) CAD (coronary artery disease), [place] coronary artery Current visit: No Status: Chronic Qualifiers: [place] vs. transplanted heart: [place] heart Associated angina: without angina Qualified Code(s): I25.10 - Atherosclerotic heart disease of [place] coronary artery without angina pectoris Category: Medical Code(s): I25.10 - Atherosclerotic heart disease of [place] coronary artery without angina pectoris (3) History of cerebrovascular accident (CVA) in adulthood Current visit: Yes Status: Chronic Category: Medical Code(s): Z86.73 - Personal history of transient ischemic attack (TIA), and cerebral infarction without residual deficits (4) Dementia Current visit: No Status: Chronic Qualifiers: Dementia type: unspecified type Dementia behavioral disturbance: without behavioral disturbance Qualified Code(s): F03.90 - Unspecified dementia without behavioral disturbance Category: Medical Code(s): F03.90 - Unspecified dementia without behavioral disturbance (5) Tobacco abuse Current visit: No Status: Chronic Category: Medical Code(s): Z72.0 - Tobacco use - Assessment and plan all Dx Assessment and Plan for all problems:: Based on patient's laboratory studies with normal liver function tests and n ormalization of white blood cell count as well as lack of abdominal tenderness there is no evidence of acute cholecystitis or need for urgent cholecystectomy. She may have had a gallbladder "attack". However, at this point, no need for urgent surgical intervention. Currently undergoing cardiology evaluation and investigative procedures. When asked if the patient is interested in surgery she refuses surgical intervention. She may be able to be managed as an outpatient with outpatient follow-up for consideration and counseling regarding possible cholecystectomy.
--- NOTE | 2019-05-28 07:59 | Progress Note ---
Subjective Date: 05/28/19 Time: 07:57 Principal diagnosis: chest pain Interval history: 59-year-old white female eating breakfast in no acute distress. Denies chest pain or abdominal pain overnight. Anxious to be discharged. Exam Vital signs and Labs for Last 24 Hours: Temp Pulse Resp BP Pulse Ox 97.9 F 68 16 115/55 L 92 L 05/28/19 04:00 05/28/19 04:00 05/28/19 04:00 05/28/19 04:00 05/28/19 04:00 Laboratory Results - last 24 hr 05/27/19 06:30: Triglycerides 126, Cholesterol 218 H, LDL Cholesterol 152 H, VLDL Cholesterol 25, HDL Cholesterol 41, Cholesterol/HDL Ratio 5.3 H I & O for Last 24 hours: Intake & Output 05/25/19 05/26/19 05/27/19 05/28/19 11:59 11:59 11:59 11:59 Intake Total 364 / 364 1371 / 1371 Balance 364 / 364 1371 / 1371 Weight 152 lb 7 oz 154 lb 3 oz - *Routine Respiratory Exam Present: CTA bilaterally. Absent: accessory muscle use, rales, rhonchi, wheezes - *Routine Cardiovascular Exam Present: RRR. Absent: murmur, gallop, rubs Progress Note: A&P (1) Atypical chest pain Status: Acute Current Visit: Yes (2) CAD (coronary artery disease), [place] coronary artery Status: Chronic Current Visit: No (3) History of cerebrovascular accident (CVA) in adulthood Status: Chronic Current Visit: Yes (4) Dementia Status: Chronic Current Visit: No (5) Tobacco abuse Status: Chronic Current Visit: No Assessment and Plan for All Diagnoses:: 1. Stress test showed no evidence of ischemia. 2. Stable from a cardiac standpoint for discharge on amlodipine and atorvastatin.
--- NOTE | 2019-05-28 08:39 | Discharge Summary ---
General - General Admission date:: 05/26/19 Discharge date: 05/28/19 HPI HPI: This is a 59-year-old white female who presented to the emergency department from the halfway with complaints of chest pain. The patient states that she was having a pressure in the center of her chest that radiated to her back. She states that this was a 5 out of 10 in intensity. She states that nothing was making her chest pain worse and nothing was making it better. She states that the chest pain started suddenly while she was smoking cigarettes. That is all the information that I can get from the patient about her chest pain. She does have dementia and a history of a CVA. She is a very poor historian. She cannot tell me anything about her family history and she cannot tell me anything about her personal history. Most of the information on this patient has been gathered from her chart here at [facility]. She does have a history of coronary artery disease with a 40 to 50% lesion to her right coronary artery in 2018. She does smoke about 1 pack/day. She is allergic to aspirin. She denies any fever, chills, nausea, vomiting, diarrhea, PND or orthopnea (Per Blossom Diggs CVT TECH). Hospital Course Hospital Course: chest x ray:IMPRESSION: Persistent right upper lobe nodular opacity. No new areas of consolidation evident. abd x ray:IMPRESSION: Cholelithiasis gallbladder us:IMPRESSION: Cholelithiasis with thickened gallbladder wall and minimal amount of pericholecystic fluid suggesting acute cholecystitis. Common duct upper normal at 6 mm stress test:Conclusion: Normal EF with no ischemic changes Surgery consult-see note Cardiology consult-see note Today patient sitting up in chair crosslegged denies any pain or discomfort. Discussed with patient the need of outpatient surgery to remove gallbladder. Patient states that this time she does not want surgery. Patient states she still receiving chemotherapy every 6 weeks for her breast cancer. Will see patient Saturday at [place]. Discussed with patient if pain continues or returns to inform staff. Objective Vital signs: Temp Pulse Resp BP Pulse Ox 98.3 F 66 18 113/55 L 95 05/28/19 08:00 05/28/19 08:00 05/28/19 08:00 05/28/19 08:00 05/28/19 08:00 no acute distress - *Routine HEENT Exam Head: Present: normocephalic Eye: Present: PERRL ENT: Present: mucous membranes moist - *Routine Neck Exam Present: supple, full ROM - *Routine Respiratory Exam Present: CTA bilaterally - *Routine Cardiovascular Exam Present: RRR - *Routine Abdominal Exam Present: soft, normoactive bowel sounds. Absent: tenderness, distended, guarding - *Routine Extremities Exam Present: full ROM - *Routine Skin Exam Present: intact - *Routine Neurological Exam Present: alert, oriented X3 - Routine Psychiatric Exam Present: normal affect Results Labs on day of discharge: Labs from last 24 hours 05/27/19 06:30 Triglycerides 126 Cholesterol 218 H LDL Cholesterol 152 H VLDL Cholesterol 25 HDL Cholesterol 41 Cholesterol/HDL Ratio 5.3 H - Additional Comments Rounded with Dr. Horner all orders per Siri DS: Diagnosis - Discharge Diagnosis (1) Atypical chest pain Status: Acute (2) CAD (coronary artery disease), [place] coronary artery Status: Chronic (3) History of cerebrovascular accident (CVA) in adulthood Status: Chronic (4) Dementia Status: Chronic (5) Tobacco abuse Status: Chronic (6) Breast cancer in female Status: Chronic Discharge Plan - Patient Discharge Instructions ACTIVITY: Continue current activity DIET: continue same diet Patient Instructions: DI for Gallstones, DI for Atypical Chest Pain - Follow up Plan Follow up with: Michele Horner MD [Staff Physician] - Disposition: [facility] Home Medications: Home Medications Medication Instructions Recorded Confirmed Type acetaminophen 500 mg capsule 500 mg PO Q4HP PRN 07/26/17 05/27/19 History bisacodyl 10 mg rectal suppository 10 mg RC Q72H PRN 07/26/17 05/27/19 History docusate sodium 250 mg capsule 250 mg PO BID cap 07/26/17 05/27/19 History gabapentin 300 mg capsule 300 mg PO QID cap 07/26/17 05/27/19 History lactulose 10 gram/15 mL (15 mL) 20 gm PO DAILYP PRN ml 07/26/17 05/27/19 History oral solution multivitamin with minerals 1 cap PO DAILY cap 07/26/17 05/27/19 History nitroglycerin 0.4 mg sublingual 0.4 mg SUBLINGUAL Q5MINP PRN 07/26/17 05/27/19 History tablet rivastigmine 9.5 mg TRANSDERMA DAILY each 07/26/17 05/27/19 History tizanidine 4 mg capsule 4 mg PO Q4HP PRN cap 07/26/17 05/27/19 History Calcium Polycarbophil [Fiber] 625 mg PO BID 08/14/18 05/27/19 History cycloSPORINE [Restasis] 1 drp OP BID 08/14/18 05/26/19 History Venlafaxine HCl [Effexor 37.5mg 37.5 mg PO BID 05/14/19 05/27/19 History tablet] levoFLOXacin [Levaquin 500mg 500 mg PO DAILY 05/26/19 05/27/19 History tab] Mag Carb/Aluminum Hydrox/Algin 30 ml PO Q4HP PRN 05/27/19 05/27/19 History [Gaviscon Liquid] Prescriptions/Medication Reconciliation: Continued gabapentin 300 mg capsule 300 mg PO QID cap rivastigmine 9.5 mg TRANSDERMA DAILY each bisacodyl 10 mg rectal suppository 10 mg RC Q72H PRN PRN Reason: Constipation nitroglycerin 0.4 mg sublingual tablet 0.4 mg SUBLINGUAL Q5MINP PRN PRN Reason: Chest Pain tizanidine 4 mg capsule 4 mg PO Q4HP PRN cap PRN Reason: muscle spasticity docusate sodium 250 mg capsule 250 mg PO BID cap cycloSPORINE [Restasis] 1 drp OP BID Calcium Polycarbophil [Fiber] 625 mg PO BID Venlafaxine HCl [Effexor 37.5mg tablet] 37.5 mg PO BID Mag Carb/Aluminum Hydrox/Algin [Gaviscon Liquid] 30 ml PO Q4HP PRN PRN Reason: Acid Reflux levoFLOXacin [Levaquin 500mg tab] 500 mg PO DAILY No Action multivitamin with minerals 1 cap PO DAILY cap acetaminophen 500 mg capsule 500 mg PO Q4HP PRN PRN Reason: pain lactulose 10 gram/15 mL (15 mL) oral solution 20 gm PO DAILYP PRN ml PRN Reason: Constipation - Problem Reconciliation Problems Reviewed?: Yes
--- NOTE | 2019-05-28 12:47 | Cardiology Report ---
APPROVED REPORT EXAM: Comprehensive 2D, Doppler, and color-flow Echocardiogram Elastic Yarn Twister Helper: Tabitha Briggs CRT Ht: 5 ft 7 in Wt: 170lbs BSA: 1.89 BP: 103/66 mmHg Indications: CP, COPD, MURMUR. SMOKER, HTN, SOB, CA, CVA, DEMENTIA, CP 2D Dimensions LVOT 1.78 cm (M/F) 1.5-2.5 M-Mode Dimensions RVDd 2.10 cm (0.9-2.6)LVDd 4.26 cm (3.5-5.7) LVDs 3.07 cm (3.5-5.7)IVSd 1.13 cm (0.6-1.1) PWd 1.05 cm (0.6-1.1)EF (Teich) 54.50% FS 27.90% EDV (Teich) 81.30 mL ESV (Teich) 37.00 mL LV Diastology E/A Ratio 0.66 Mitral Valve MV A Velocity 81.00 (40-130 cm/s) Left Ventricle Left atrium is mildly enlarged, left ventricle is normal size, mild concentric left ventricular hypertrophy, visually estimated ejection fraction 55% with no regional wall motion abnormality, grade 1 diastolic dysfunction seen without tissue Doppler evidence of raise left atrial pressure. Right Ventricle Right atrium and right ventricle are normal size and contractility. Aortic Valve Aortic valve is minimally thickened and fibrosed, there is no aortic stenosis or aortic insufficiency. Mitral Valve Mitral valve is grossly normal, there is mild mitral regurgitation. Tricuspid Valve Tricuspid valve is grossly normal, there is mild tricuspid regurgitation, calculated right ventricular systolic pressure is 39 mmHg Pulmonic Valve Pulmonic valve is poorly visualized. Great Vessels Aortic root is normal size. Pericardium No significant pericardial effusion noted. Conclusion 1. Mildly enlarged left atrium, normal left ventricular size, mild concentric left ventricular hypertrophy, visually estimated ejection fraction 55% with no regional wall motion abnormality, grade 1 diastolic dysfunction seen without tissue Doppler evidence of raise left atrial pressure. 2. Mild mitral and tricuspid regurgitation, calculated right ventricular systolic pressure is 39 mmHg. 3. No significant pericardial effusion noted. Electronically signed by : Simone Banks, 05/28/2019 12:47:15
--- NOTE | 2019-05-28 12:59 | Electrocardiograph Report ---
APPROVED REPORT Exam: Resting ECG HR:61 bpm ECG Measurements Heart Rate 61 AXES DC 142 P 49 QRSd 58 QRS 38 QT 434 T71 QTc 436 <Conclusion> Normal sinus rhythm Low voltage QRS Nonspecific ST abnormality Abnormal ECG Electronically signed by : Clayton Yarbrough, 05/28/2019 12:59:19
--- NOTE | 2019-05-28 15:20 | Cardiology Report ---
APPROVED REPORT Exam: Pharmacologic Technologist: Dayana Corbett, Ht: 5 ft 3 in Wt: 150 lbs BSA: 1.71 m2 HR: 72 bpm BP: 99/60 mmHg Medical History Medical History: HTN Medications: Effexor,,,,, Gabapentin,,,,, Tylenol,,,,, Restasis,,,,, Tizanidine,,,,, GaVISCON,,,,, Lactulose,,,,, Nitro,,,,, RIvastigmine,,,,, Allergies: BEE POLLEN,ASA,SHELLFISH Cardiac Risk Factors: HTN, Smoking Stress Test Details Test: LEXISCAN HR Resting HR: 77 bpmMax Heart Rate (APMHR): 160 bpm Max HR Achieved: 111 bpmTarget HR (85% APMHR): 136 bpm % of APMHR: 69 Recovery HR: 95 bpm BP Resting BP: 103.0/54.0 mmHg Max BP: 103.0/54.0 mmHg Recovery BP: 84.0/53.0 mmHg ECG Clinical Exercise duration: 04:26 min Highest Stage Achieved: Exercise capacity: 1.0 METs Stress ECG Conclusion DURING INFUSION OF LEXISCAN PATIENT HAD NO SYMPTOMS OR ARRHYTHMIAS. < 1.[address] SEGMENT CHANGES. LEXISCAN IMAGES TO FOLLOW. Test Summary REST.......Sitting REST.......Sitting REST10:48..77.103/ 54.. Stage 1.......Cardiolite injected Stage 101:00..94.... Stage 201:00..107.... Stage 301:00..103.70/ 43.. Stage 401:00..103.85/ 50.. Stage 401:26..91.83/ 51.Stop exercise at 04:26 WVQIBUIN78:00..97.... DORSBIMB59:00..91.... LMEBCTAY90:00..94.... VQTEZXBH88:00..91.83/ 47.. QHHWEQMY10:28..90.83/ 47.. Electronically signed by : Simone Banks, 05/28/2019 15:19:48
== END 2019-05-28 11:35 ==
LOC: ER 18:17 → 2ND 18:17
PROVIDERS: ADMIT Emergency Medicine; ATTEND Emergency Medicine
CPT/HCPCS: 36415; 71010; 71045; 74019; 74020; 76705; 78452; 80048; 80053; 80061; 82150; 83690; 84484; 85025; 93005; 93017; 93306; 99284; A9502; G0378; J2785

== ENCOUNTER → 2019-06-23 14:23 | Outpatient (CLI) | payer MEDICARE, MEDICAID, SELFPAY | PROVIDERS: Visit Provider Emergency Medicine | DX: Z20.828 Contact with and (suspected) exposure to other viral communicable diseases (principal) | CPT/HCPCS: 87275; 87276 ==

== ENCOUNTER 2019-11-09 13:40 | Emergency (ER) | payer MEDICARE, MEDICAID, SELFPAY ==
[2019-11-09 13:41] VITALS: BP 127/79; PULSE 79; RESP 18; TEMP 36.2; O2SAT 95; BMI 34.7
--- NOTE | 2019-11-09 14:12 | CT_ITS ---
PROCEDURE: CT ABDOMEN PELVIS WO CON CLINICAL INDICATION: LUQ PAIN COMPARISON: ABDPELW CT abdomen pelvis w con from 08/14/2018 TECHNIQUE: Axial images obtained with sagittal and coronal reformats. All CT scans at the facility use one or more dose reduction, viz: automated exposure control, ma/kV adjustment per patient size (including targeted exams where dose is matched to indication, i.e. head), or iterative reconstruction technique. FINDINGS: There are a few scattered lingular atelectatic like infiltrates or scars. There is hypoventilation in the right lung base. Pericardial fluid or thickening is demonstrated with maximum thickness posteriorly of 14 millimeters. There is a small hiatal hernia. The unenhanced liver is unremarkable. Gallstones are again noted. The adrenal glands, pancreas, spleen, aorta, kidneys, small and large bowel, appendix, soft tissues and bony structures are unremarkable. CT scan of the pelvis without contrast. Uterus, adnexal structures, bladder, soft tissues and bony structures are unremarkable for mass lesions. IMPRESSION: Gallstones Dictated by: Tu Andrews 11/09/2019 16:13 Electronically signed by Tu Andrews in [place] 11/09/2019 16:13
[2019-11-09 14:36] LABS: Basophils % 0.1 % (0.1-2.0); Eosinophils % 0.1 % (0.1-12.0); Hematocrit 45.2 % (37.0-47.0); Lymphocytes # 1.3 K/mm3 (0.7-4.5); Lymphocytes % 9.8 % (10-50); Mean Corpuscular HGB Conc 33.1 g/dL (31.8-35.4); Mean Corpuscular Hemoglobin 28.6 pg (27.0-31.2); Mean Corpuscular Volume 86.5 fl (81-99); Mean Platelet Volume 8.4 fl (7.4-10.4); Monocytes # 0.3 K/mm3 (0.1-1.0); Monocytes % 2.4 % (1.7-9.3); Neutrophils # 11.5 K/mm3 (1.8-7.8); Neutrophils % 87.5 % (37.0-80.0); Platelet Count 210 K/mm3 (142-424); Red Blood Count 5.23 M/mm3 (4.20-5.40); Red Cell Distribution Width 13.1 % (11.5-17.5); White Blood Count 13.1 K/mm3 (4.8-10.8)
[2019-11-09 14:37] LABS: MANUAL DIFFERENTIAL MANUAL DIFFERENTIAL (MANUAL DIFF)
[2019-11-09 14:42] LABS: Chloride 101 mmol/L (98-107); Potassium 4.4 mmoL/L (3.5-5.1); Sodium 138 mmol/L (136-145)
[2019-11-09 14:45] LABS: Alanine Aminotransferase 33 U/L (12-78); Alkaline Phosphatase 109 U/L (38-126); Amylase 47 U/L (30-110); Anion Gap 13.4 mEq/L (5-15); Aspartate Amino Transferase 28 U/L (14-36); Bilirubin,Total 0.5 mg/dl (0.2-1.3); Blood Urea Nitrogen 7 mg/dl (7-17); Calcium 8.9 mg/dl (8.4-10.2); Carbon Dioxide 28 mmol/L (22.0-30.0); Creatinine Clearance Estimated 116 mL/min (50-200); Estimated Glomerular Filt Rate 85 ml/min (>60); GFR (African American) 103 ML/MIN (>60); Glucose 147 mg/dl (74-100)
[2019-11-09 14:46] LABS: Albumin Level 4.2 g/dl (3.5-5.0); Albumin/Globulin Ratio 1.2 (1.1-1.8); Globulin 3.5 g/dL (1.3-3.2); Lipase 37 U/L (23-300); Total Protein,Serum 7.7 g/dl (6.3-8.2)
[2019-11-09 14:53] VITALS: BP 153/61; PULSE 66; RESP 18; O2SAT 96
[2019-11-09 15:15] LABS: Lymphocytes % 7 % (10-50); Monocytes % 3 % (2-9); Neutrophils % 90 % (42-76); Platelet Estimate Normal; RBC Morphology Normal; Total Cells Counted 100
[2019-11-09 16:30] VITALS: BP 125/67; PULSE 84; RESP 20; O2SAT 97
--- NOTE | 2019-11-09 16:32 | HMH.EDABDPAI ---
ED Disposition Clinical Impression: Cholelithiasis Disposition: Home, Self-Care Condition on Discharge: Good Instructions: DI for Acute Abdomen Prescriptions: Nabumetone 750 mg PO BID 10 Days #20 tab Transmission Status: Pending to [facility] Referrals: Provider,Referral, [Primary Care Provider] - - Critical Care Critical Care Time: No Attestation: On 11/09/19, the high probability of a clinically significant, sudden or life threatening deterioration of the following system(s) required my full and direct attention, intervention and personal management. The time I documented below is in addition to time spent performing reported procedures but includes the following listed in this critical care notation. Medical Decision Making - Medical Records Medical records reviewed: Yes: I reviewed the patient's medical records. - Rick Inquiry Pt receiving controlled substance: No Vital Signs: 11/09/19 13:41 11/09/19 14:53 Temperature 97.2 F L Temperature Source Oral Pulse Rate [Right Radial] 79 66 Respiratory Rate 18 18 Blood Pressure [Right Arm] 127/79 153/61 H Blood Pressure Mean [Right Arm] 95 91 Blood Pressure Source [Right Arm] Automatic Cuff Automatic Cuff Blood Pressure Position [Right Arm] Sitting Supine 02 Sat by Pulse Oximetry 95 96 Oxygen Delivery Method Room Air - Lab Data Lab results reviewed: Yes: I reviewed the patient's lab results. Lab Results 11/09/19 14:25: WBC 13.1 H, RBC 5.23, Hgb 15.0, Hct 45.2, MCV 86.5, MCH 28.6, MCHC 33.1, RDW 13.1, Plt Count 210, MPV 8.4, Neut % (Auto) 87.5 H, Lymph % (Auto) 9.8 L, Gibson % (Auto) 2.4, Eos % (Auto) 0.1, Baso % (Auto) 0.1, Neut # (Auto) 11.5 H, Lymph # (Auto) 1.3, Gibson # (Auto) 0.3, Eos # (Auto) 0.0, Baso # (Auto) 0.0, Total Counted 100, Neutrophils % (Manual) 90 H, Lymphocytes % (Manual) 7 L, Monocytes % (Manual) 3, Platelet Estimate Normal, RBC Morphology Normal 11/09/19 14:25: Sodium 138, Potassium 4.4, Chloride 101, Carbon Dioxide 28, Anion Gap 13.4, BUN 7, Creatinine 0.70, Estimated Creat Clear 116, Estimated GFR 85, Est GFR ( Amer) 103, Glucose 147 H, Calcium 8.9, Total Bilirubin 0.5, AST 28, ALT 33, Alkaline Phosphatase 109, Total Protein 7.7, Albumin 4.2, Globulin 3.5 H, Albumin/Globulin Ratio 1.2, Amylase 47, Lipase 37 Result diagrams: 11/09/19 14:25 11/09/19 14:25 Orders (Tests/Meds): ED MEDICATIONS Discontinued Medications Generic Name Dose Route Start Last Admin Trade Name Freq PRN Reason Stop Dose Admin Sodium Chloride 1,000 mls @ 999 mls/hr 11/09/19 14:30 11/09/19 14:30 Sod Chlor 0.9% 1000ml Bag IV 11/09/19 15:30 999 mls/hr .Q1H1M CADENCE Administration Ketorolac Tromethamine 30 mg 11/09/19 14:26 11/09/19 14:29 Toradol 30mg/Ml Vial IV 11/09/19 14:27 30 mg ONCE ONE Administration Ondansetron HCl 4 mg 11/09/19 14:26 11/09/19 14:29 Zofran 4mg/2ml Vial IV 11/09/19 14:27 4 mg ONCE ONE Administration - CT Data CT Scan: Abdomen, Pelvis Time Received: 16:00 Preliminary Findings: Abnormal (gallstones) Abdominal Pain HPI - General Chief Complaint: Abdominal Pain Stated Complaint: LUQ PAIN Time Seen by Provider: 11/09/19 16:00 Mode of Arrival: EMS Source of Information: Patient Limitations: No Limitations Description of Symptoms (Recalled from ER Triage Doc. by RN): PT C/O LUQ PAIN. DENIES N/V/D. C/O BELLYACHE - History of Present Illness HPI narrative: 59-year-old female presents the ED with left-sided chest wall pain. She states the pain started couple days ago and is progressively gotten worse. She states the pain is a sharp sensation and classifies it as 3 out of 10. She states exacerbating factors include touching the chest wall. She also states exacerbating factors include increasing intrathoracic pressure. Alleviating factors include rest.Patient denies any recent cough or shortness of breath, patient denies any sore throat or headache, patie
[2019-11-09 18:25] VITALS: BP 129/68; PULSE 72; RESP 14; TEMP 36.7; O2SAT 97
== END 2019-11-09 18:25 | disposition home or self-care (01) ==
PROVIDERS: Emergency Provider Family Medicine
DX: K80.20 Calculus of gallbladder without cholecystitis without obstruction (principal); F03.90 Unspecified dementia, unspecified severity, without behavioral disturbance, psychotic disturbance, mood disturbance, and anxiety; J44.9 Chronic obstructive pulmonary disease, unspecified; K21.9 Gastro-esophageal reflux disease without esophagitis; F33.1 Major depressive disorder, recurrent, moderate; I25.10 Atherosclerotic heart disease of native coronary artery without angina pectoris; I10 Essential (primary) hypertension; F17.210 Nicotine dependence, cigarettes, uncomplicated; Z86.73 Personal history of transient ischemic attack (TIA), and cerebral infarction without residual deficits; Z79.899 Other long term (current) drug therapy
CPT/HCPCS: 74176; 80053; 82150; 83690; 85007; 85025; 96365; 96375; 99283; J2405

== ENCOUNTER 2020-05-10 14:55 | Observation (INO) | payer MEDICARE, MEDICAID, SELFPAY ==
[2020-05-10] VITALS (10 sets, daily range): BP systolic 64–163; BP diastolic 48–78; PULSE 67–85; RESP 16–18; TEMP 36.8–37.2; O2SAT 92–95; BMI 28.3
--- NOTE | 2020-05-10 14:54 | HMH.EDGENADL ---
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 The time I documented below is in addition to time spent performing reported procedures but includes the following listed in this critical care notation. Total Critical Care Time: 30 Vital system(s) involved:: Circulatory Failure My critical care processes included: Assessment & monitoring of V/S, Initial and Re-exams, Data Review/Interpretation, Coordinating Care, Medication Orders and management, Documentation Medical Decision Making - Rick Inquiry Pt receiving controlled substance: No Vital Signs: 05/10/20 14:52 05/10/20 15:15 05/10/20 15:34 Temperature 98.3 F Temperature Source Oral Pulse Rate [Radial] 85 81 Respiratory Rate 16 Blood Pressure [Left Arm] 64/48 L Blood Pressure [Right Arm] 119/68 99/56 L Blood Pressure Mean [Left Arm] 53 Blood Pressure Mean [Right Arm] 85 70 Blood Pressure Source [Left Arm] Automatic Cuff Blood Pressure Source [Right Arm] Automatic Cuff Automatic Cuff Blood Pressure Position [Left Arm] Sitting Blood Pressure Position [Right Arm] Sitting Sitting 02 Sat by Pulse Oximetry 92 L 92 L Oxygen Delivery Method Room Air Room Air 05/10/20 16:05 05/10/20 16:30 05/10/20 18:08 Temperature Temperature Source Pulse Rate [Radial] 74 82 73 Respiratory Rate Blood Pressure [Left Arm] 163/78 H 110/73 Blood Pressure [Right Arm] 102/59 L Blood Pressure Mean [Left Arm] 106 85 Blood Pressure Mean [Right Arm] 73 Blood Pressure Source [Left Arm] Automatic Cuff Automatic Cuff Blood Pressure Source [Right Arm] Automatic Cuff Blood Pressure Position [Left Arm] Sitting Sitting Blood Pressure Position [Right Arm] Sitting 02 Sat by Pulse Oximetry 93 L 93 L 94 L Oxygen Delivery Method Room Air Room Air Room Air - Lab Data Lab Results 05/10/20 15:10: WBC 9.6, RBC 4.87, Hgb 13.9, Hct 42.5, MCV 87.4, MCH 28.5, MCHC 32.6, RDW 13.4, Plt Count 207, MPV 8.9, Neut % (Auto) 62.4, Lymph % (Auto) 28.2, Cooper % (Auto) 6.1, Eos % (Auto) 2.8, Baso % (Auto) 0.4, Neut # (Auto) 6.0, Lymph # (Auto) 2.7, Cooper # (Auto) 0.6, Eos # (Auto) 0.3, Baso # (Auto) 0.0 05/10/20 15:10: Sodium 142, Potassium 4.1, Chloride 106, Carbon Dioxide 30, Anion Gap 10.1, BUN 14, Creatinine 1.10 H, Estimated Creat Clear 62, Estimated GFR 51 L, Est GFR ( Amer) 61, Glucose 129 H, Calcium 9.6, Total Bilirubin 0.4, AST 24, ALT 25, Alkaline Phosphatase 84, Total Protein 7.1, Albumin 3.9, Globulin 3.2, Albumin/Globulin Ratio 1.2 05/10/20 15:10: PT 11.7, INR 1.06 05/10/20 15:10: ESR 21 05/10/20 15:10: C-Reactive Protein 15.0 H 05/10/20 15:10: APTT 25.4 05/10/20 15:10: SARS-CoV-2 IgG Ab (Rapid) Negative, SARS-CoV-2 IgM Ab (Rapid) Negative 05/10/20 15:10: Troponin I < 0.01 05/10/20 15:30: Lactate 1.7 Result diagrams: 05/10/20 15:10 05/10/20 15:10 Orders (Tests/Meds): ED MEDICATIONS Generic Name Dose Route Start Last Admin Trade Name Freq PRN Reason Stop Dose Admin Acetaminophen 650 mg 05/10/20 17:01 Acetaminophen 325mg Tab PO 06/09/20 17:00 Q4HP PRN As Needed for Fever or Pain Diphenhydramine HCl 50 mg 05/11/20 08:30 Diphenhydramine 50mg/Ml Vial IV 05/11/20 08:31 ONCE ONE Sodium Chloride 1,000 mls @ 50 mls/hr 05/10/20 17:01 Sod Chlor 0.9% 1000ml Bag IV 06/09/20 15:59 .Q20H CADENCE Heparin Sodium/Dextrose 500 mls @ 26 mls/hr 05/10/20 17:01 Heparin 25,000 Units In D5w 500ml Premix IV 06/09/20 15:44 .[id number] CADENCE 1,300 UNITS/HR Ondansetron HCl 4 mg 05/10/20 17:01 Ondansetron 4mg/2ml Vial IV 06/09/20 17:00 Q8HP PRN Nausea
--- NOTE | 2020-05-10 15:07 | PC.NURSE ---
Calling for Dr Holliday.
--- NOTE | 2020-05-10 15:10 | ECG_ITS ---
APPROVED REPORT Exam: Resting ECG HR:80 bpm ECG Measurements Heart Rate 80 AXES AL 140 P 28 QRSd 66 QRS 21 QT 420 T 72 QTc 484 Conclusion Normal sinus rhythm Low voltage QRS Prolonged QT Abnormal ECG Electronically signed by : Clayton Yarbrough, 05/12/2020 14:29:37
--- NOTE | 2020-05-10 15:15 | PC.NURSE ---
RECHECK OF LT HAND, ALL FINGERS NOTED TO BE CYANOTIC AND PAINFUL
[2020-05-10 15:19] LABS: Basophils % 0.4 % (0.1-2.0); Eosinophils # 0.3 K/mm3 (0.0-0.4); Eosinophils % 2.8 % (0.1-12.0); Hematocrit 42.5 % (37.0-47.0); Hemoglobin 13.9 g/dL (12.2-16.2); Lymphocytes # 2.7 K/mm3 (0.7-4.5); Lymphocytes % 28.2 % (10-50); Mean Corpuscular HGB Conc 32.6 g/dL (31.8-35.4); Mean Corpuscular Hemoglobin 28.5 pg (27.0-31.2); Mean Corpuscular Volume 87.4 fl (81-99); Mean Platelet Volume 8.9 fl (7.4-10.4); Monocytes # 0.6 K/mm3 (0.1-1.0); Monocytes % 6.1 % (1.7-9.3); Neutrophils % 62.4 % (37.0-80.0); Platelet Count 207 K/mm3 (142-424); Red Blood Count 4.87 M/mm3 (4.20-5.40); Red Cell Distribution Width 13.4 % (11.5-17.5); White Blood Count 9.6 K/mm3 (4.8-10.8)
[2020-05-10 15:22] LABS: Chloride 106 mmol/L (98-107); Sodium 142 mmol/L (136-145)
[2020-05-10 15:23] LABS: Potassium 4.1 mmoL/L (3.5-5.1)
[2020-05-10 15:25] LABS: Alanine Aminotransferase 25 U/L (12-78); Alkaline Phosphatase 84 U/L (38-126); Aspartate Amino Transferase 24 U/L (14-36); Bilirubin,Total 0.4 mg/dl (0.2-1.3); Blood Urea Nitrogen 14 mg/dl (7-17); Creatinine Clearance Estimated 62 mL/min (50-200); Estimated Glomerular Filt Rate 51 ml/min (>60); GFR (African American) 61 ML/MIN (>60)
[2020-05-10 15:26] LABS: Albumin Level 3.9 g/dl (3.5-5.0); Albumin/Globulin Ratio 1.2 (1.1-1.8); Anion Gap 10.1 mEq/L (5-15); Calcium 9.6 mg/dl (8.4-10.2); Carbon Dioxide 30 mmol/L (22.0-30.0); Globulin 3.2 g/dL (1.3-3.2); Glucose 129 mg/dl (74-100); Total Protein,Serum 7.1 g/dl (6.3-8.2)
[2020-05-10 15:31] LABS: INR 1.06 (0.9-1.1); Prothrombin Time 11.7 seconds (9.4-11.8)
--- NOTE | 2020-05-10 15:35 | PC.NURSE ---
Mary Diggs at bedside.
--- NOTE | 2020-05-10 15:38 | HMH.CNCARD ---
History of Present Illness Consult date: 05/10/20 Chief complaint: cyanotic and painful fingers of left hand Additional Medical History:: [facility] from 2018 shows: 1. The left main artery normal 2. The left anterior descending artery normal 3. The circumflex artery nondominant normal 4. The right coronary artery dominant and has a proximal to mid vessel 40-50% nonflow limiting stenosis 5. The ALEXANDRA ventriculogram reveals normal 65% 6. The left ventricular end-diastolic pressure 10 mmHg IMPRESSION: 1. Moderate disease in the proximal to mid dominant right coronary artery 2. Normal ejection fraction 3. Normal left ventricular end-diastolic pressure PLAN: 1. Medical management 2. LDL less than 55 3. Avoidance of tobacco products 4. Risk factor modification History of present illness: This is a 59-year-old white female who presented to the emergency department from [facility] with cyanotic fingers on her left hand. All 5 digits on her left hand are cyanotic. Her index middle and ring fingers are all cool to touch. Her thumb and pinky finger are not as cool as the other 3 fingers. All of her fingers have a sluggish capillary refill. She states that her fingers are tender and painful. She states that nothing is really helping to improve the pain or tenderness. Nursing staff states that when report was called from the retirement it was only her index and ring finger that were cyanotic. However, here all 5 of her digits on the left hand are cyanotic. I cannot palpate a ulnar or radial pulse in her left upper extremity. I cannot palpate a brachial pulse in the left upper extremity. However all pulses in the left upper extremity are noted on Doppler. I cannot palpate a radial pulse in her right upper extremity either but there is a ulnar pulse in the right upper extremity. She has no cyanotic digits in the right upper extremity. Her pedal pulses are palpable bilaterally. She denies any chest pain or pressure. She denies any shortness of breath or edema. She denies any fever, chills, nausea, vomiting, diarrhea, PND or orthopnea. She is alert to self and place. She is a little confused to time. She is able to tell me what year it is but she really does not know what day or month it is. She did report that she noticed her fingers turning blue on Saturday. However, the patient is confused to the day and month, so it is unclear whether this is accurate that this started on Saturday. The retirement did notice her blue fingers today and she was sent here to the emergency department. The patient does have a history of dementia. She denies ever having blue digits in the past. [facility] History I have reviewed the patient's past medical history: Yes Medical History: Reports:: Aneurysm, Cancer, Chronic Obstructive Pulmonary Disease (COPD), Coronary Artery Disease, Cerebrovascular Accident, Dementia, Depression, Gall Bladder Disease, Gastroesophageal Reflux Disease(GERD), Hypertension, Urinary Tract Infection Denies:: Diabetes Mellitus Type 1, Diabetes Mellitus Type 2, Internal Pacemaker, MRSA, Seizures *Have you ever received a pneumonia vaccine?: Yes *Have you received a flu vaccine this season?: Yes Other Medical History: Reports: Arthritis Other Surgeries: Yes: Colonoscopy, Tubal Ligation. No: Pacemaker Amputation: Yes Fractures: No - *Social History Smoking Status: Current every day smoker Tobacco Type: cigarettes # Packs/Day (cigarettes): 1 Alcohol Intake: never Alcohol Intake Frequency:: other Substance Use Type: unknown *Occupational Status:: other Housing: retirement *Travel in the last 8 weeks: None - Psychiatric History Pschychiatric History:: Reports:: Depression Family Hx:: Unable to obtain Meds Home Medications Medication Instructions Recorded Confirmed Type acetaminophen 500 mg capsule 500 mg PO Q4HP PRN 07/26/17 02/01/20 History bisacodyl 10 mg rectal suppository 10 mg RC Q72H PRN 07/26/17
--- NOTE | 2020-05-10 15:39 | CA_ITS ---
APPROVED REPORT EXAM: Comprehensive 2D, Doppler, and color-flow Echocardiogram Judicial Clerk: Elvira Ely, RT(R) Ht: 5 ft 3 in Wt: 160lbs BSA: 1.76 BP: 99/56 mmHg Indications: COPD, smoker, HTN, dementia, CAD, hx CVA, hx of breast cancer, GERD, two blue fingers on left hand 2D Dimensions LVOT 1.62 cm (M/F) 1.5-2.5 LVEF (Wright's) 52.70 % F: 54 - 74 LV Volume 64.90 mL F: 46 - 106 LV Volume Index 36.87 mL/m2 F: 29 - 61 M-Mode Dimensions RVDd 2.65 cm (0.9-2.6) LA Diam 2.59 cm (1.9-4.0) LVDd 3.72 cm (3.5-5.7) Ao Diam 2.64 cm (2.0-3.7) LVDs 3.02 cm (3.5-5.7) IVSd 0.80 cm (0.6-1.1) PWd 1.21 cm (0.6-1.1) EF (Teich) 39.60% FS 18.80% EDV (Teich) 58.90 mL ESV (Teich) 35.60 mL LV Diastology E Decel Time 177.00 (160-240 msec) E/A Ratio 0.8 MED E' 5.90 (< 7 cm/sec) E'/MED E' Ratio 11.49 (>14) LAT E' 7.60 (<10 cm/sec) E/LAT E' Ratio 8.92 (>14) Mitral Valve MV E Max Leonides. 68.00 (40-130 cm/s) MV A Velocity 88.00 (40-130 cm/s) E/A Ratio 0.77 MV Decel. Time 177.00 (160-240 ms) MV PHT 52.00 ms Left Ventricle Left atrium is mildly enlarged, left ventricle is normal size, mild concentric left ventricular hypertrophy, visually estimated ejection fraction 55% with no regional wall motion abnormality, grade 1 diastolic dysfunction seen without tissue Doppler evidence of raise left atrial pressure. Right Ventricle Right atrium and right ventricle are normal size and contractility. Aortic Valve Aortic valve is minimally thickened and fibrosed, there is no aortic stenosis or aortic insufficiency. Mitral Valve Mitral valve is grossly normal, there is mild mitral regurgitation. Tricuspid Valve Tricuspid valve grossly normal, there is mild tricuspid regurgitation, tricuspid regurgitation jet velocity is inadequate for calculation of the right ventricular systolic pressure. Pulmonic Valve Pulmonic valve is poorly visualized. Great Vessels Aortic root is normal size. Pericardium Trivial pericardial effusion noted. Conclusion 1. Mildly enlarged left atrium, normal left ventricular size, mild concentric left ventricular hypertrophy, visually estimated ejection fraction 55% with no regional wall motion abnormality, grade 1 diastolic dysfunction seen without tissue Doppler evidence of raise left atrial pressure. 2. Mild mitral and tricuspid regurgitation. 3. Trivial pericardial effusion noted. Electronically signed by : Simone Banks, 05/11/2020 06:23:37
--- NOTE | 2020-05-10 15:39 | CA_ITS ---
APPROVED REPORT Guidance And Control System Engineer: CT Laterality: Bilateral Indications: cyanotic left fingers Doppler Spectral Velocity Analysis ECA (R) 135.00/ cm/s ECA (L) 105.00/ cm/s dICA (R) 107.70/28.40 cm/s dICA (L) 116.00/31.40 cm/s Ngoc (R) 93.60/15.00 cm/s Ngoc (L) 93.50/28.40 cm/s pICA (R) 82.30/19.20 cm/s pICA (L) 123.50/38.20 cm/s dCCA (R) 79.10/23.50 cm/s dCCA (L) 86.00/29.90 cm/s pCCA (R) 163.60/33.10 cm/s pCCA (L) 74.80/23.90 cm/s Vert (R) 69.70/ cm/s Vert (L) 12.40/ cm/s ICA/CCA 1.40 ICA/CCA 1.40 Findings Duplex evaluation demonstrates stenosis of the right proximal internal carotid artery <20% with PSV <140 cm/sec, EDV <100 cm/sec, and IC/CC Ratio <4.0. Duplex evaluation demonstrates stenosis of the left proximal internal carotid artery <20% with PSV <140 cm/sec, EDV <100 cm/sec, and IC/CC Ratio <4.0. Duplex evaluation demonstrates antegrade flow of the bilateral Vertebral Arteries. Conclusion Duplex evaluation demonstrates stenosis of the right proximal internal carotid artery <20% with PSV <140 cm/sec, EDV <100 cm/sec, and IC/CC Ratio <4.0. Duplex evaluation demonstrates stenosis of the left proximal internal carotid artery <20% with PSV <140 cm/sec, EDV <100 cm/sec, and IC/CC Ratio <4.0. Duplex evaluation demonstrates antegrade flow of the bilateral Vertebral Arteries. Electronically signed by : Porter Amin MD 05/10/2020 17:07:57
[2020-05-10 15:54] LABS: Activated Partial Thrombo Time 25.4 seconds (23.6-34.0)
--- NOTE | 2020-05-10 16:00 | PC.NURSE ---
Vascular lab at bedside
[2020-05-10 16:07] LABS: Lactic Acid 1.7 mmol/L (0.7-2.1)
--- NOTE | 2020-05-10 16:13 | XR_ITS ---
PROCEDURE: XR CHEST PORTABLE CLINICAL HISTORY: cyanosis COMPARISON: CR [id number] XR chest portable from 08/14/2018 CR XR CHEST PORTABLE from 05/14/[address] ANGIO CHEST from 05/14/2019 CR XR CHEST PORTABLE from 05/26/2019 FINDINGS: The cardiomediastinal silhouette and pulmonary vascularity are within normal limits. There is increased density in the right upper lobe somewhat ill-defined and may represent an area of pneumonia. Follow-up suggested pulmonary mass is not excluded. Patchy density also present in the left perihilar region. No acute bony abnormalities. IMPRESSION: Right upper lobe pneumonia or mass. Suggest following till clear. Chest CT with contrast may provide further evaluation. Patchy infiltrate or atelectatic change left perihilar region Dictated by: Porter Amin MD 05/10/2020 22:40 Porter Amin MD in OV 05/10/2020 22:40
[2020-05-10 16:19] LABS: Coronavirus 19 IgG Antibody Negative (Negative); Coronavirus 19 IgM Antibody Negative (Negative); Erythrocyte Sedimentation Rate 21 mm/hr (0-30)
[2020-05-10 16:40] LABS: Troponin I < 0.01 ng/ml (0.00-0.034)
--- NOTE | 2020-05-10 17:00 | PC.NURSE ---
PT RESTING OFFERS NO C/O AT PRESENT
--- NOTE | 2020-05-10 18:28 | PC.NURSE ---
Rad at bedside
--- NOTE | 2020-05-10 18:37 | PC.NURSE ---
REPORT TO SHONDA BRAVO
[2020-05-10 19:33] LABS: Troponin I < 0.01 ng/ml (0.00-0.034)
--- NOTE | 2020-05-10 21:00 | PC.NURSE ---
attempted to call daughter. unable to leave voicemail due to voicemail not being setup
--- NOTE | 2020-05-10 21:25 | PC.NURSE ---
PTT time was changed due to heparin drip begun @ 1536.
[2020-05-10 22:29] LABS: Activated Partial Thrombo Time 79.1 seconds (23.6-34.0)
--- NOTE | 2020-05-10 22:39 | PC.NURSE ---
torey from pharmacy called after PTT results. heparin gtt titrated to 24ml/hr
[2020-05-10 22:53] LABS: Troponin I < 0.01 ng/ml (0.00-0.034)
[2020-05-11] VITALS (27 sets, daily range): BP systolic 91–171; BP diastolic 44–90; PULSE 60–101; RESP 12–20; TEMP 36.5–37.1; O2SAT 93–100
--- NOTE | 2020-05-11 | IR_ITS ---
APPROVED REPORT Patient Location: Inpatient Catering Associate: CAMILO Black RT (R) PROCEDURES Catheter placement in the left subclavian artery Left subclavian artery angiogram Bare-metal stent deployment to the left subclavian artery INDICATION Left subclavian stenosis, Limb threatening ischemia in the left arm, Informed consent was obtained prior to the procedure. COMPLICATIONS none Estimated Blood Loss: less than 10 mls TECHNIQUE 1% lidocaine used anesthetize the right groin the right femoral artery was accessed via the Salinger technique and a 5 Irish sheath was placed in the right femoral artery. A JR4 catheter was used to cannulate the left subclavian artery and perform angiography. An advantage wire was then advanced beyond the critical stenosis. Therapeutic heparin was administered giving a therapeutic ACT. The 5 Irish sheath was exchanged for a long 8 Irish destination sheath. With the sheath outside of the left subclavian artery and the aortic arch and the wire into the brachial artery an 8 mm x 17 mm bare-metal stent was deployed at 10 zoraida reducing the critical stenosis to 0%. After achieving excellent angiographic results the apparatus was removed the patient was transferred to the postop holding area in stable condition for sheath removal ANGIOGRAPHIC RESULTS The left subclavian artery has an ostial proximal 90% stenosis Following the procedure the left subclavian artery was widely patent with excellent antegrade flow IMPRESSION Critical disease in the ostial proximal left subclavian artery Successful stenting of the left subclavian artery critical disease reduced to 0% with 1 bare-metal balloon expandable stent PLAN 1. I am concerned about distal thrombus therefore I would recommend patient be on aspirin Plavix and Xarelto full dose for 1 month. After 1 month patient can drop the aspirin and continue with Xarelto and Plavix. 2. I would recommend Xarelto for 3 months then discontinue Xarelto 3. Avoidance of tobacco products 4. Supportive care with as needed pain medicine for the ischemic digits which will likely result in ischemic neuropathy 5. LDL less than 55 6. Evaluation for ischemic heart disease Electronically signed by : Shahbaz Holliday, 05/11/2020 14:55:25
--- NOTE | 2020-05-11 04:36 | PC.NURSE ---
pt able to state name,birthday,and place. lungs CTA. left radial pulse easily detected via Doppler. heparin gtt @ 24ml/hr. pt has slept at intervals t/o shift
--- NOTE | 2020-05-11 05:44 | PC.NURSE ---
current PTT 68.0 torey from pharmacy said to leave heparin gtt @ 24 mls/hr
--- NOTE | 2020-05-11 07:03 | HMH.PHAVTE ---
[facility] Pharmacy VTE Monitoring - Patient Demographics Admission date: 05/10/20 Report Date: 05/11/20 Time: 07:03 Allergies/Adverse Reactions: Patient Allergies bee pollen Allergy (Intermediate, Verified 02/01/20 20:35) Unknown allergy reaction aspirin Allergy (Unknown, Verified 02/01/20 20:35) Unknown allergy reaction shellfish derived Allergy (Unknown, Verified 02/01/20 20:35) Unknown allergy reaction Height: 1.57 m Weight: 70.307 kg Patient Problems: Current Active Problems Dementia (Chronic) Tobacco abuse (Chronic) Cyanotic fingertip (Acute) Ischemia of hand (Acute) Subclavian steal syndrome (Acute) Coronary artery disease (Chronic) Subclavian steal syndrome of left subclavian artery (Acute) - VTE Risk Labs: VTE Related Lab Results Hgb 13.9 g/dL (12.2-16.2) 05/10/20 15:10 Hct 42.5 % (37.0-47.0) 05/10/20 15:10 Plt Count 207 K/mm3 (142-424) 05/10/20 15:10 PT 11.7 seconds (9.4-11.8) 05/10/20 15:10 INR 1.06 (0.9-1.1) 05/10/20 15:10 APTT 68.0 seconds (23.6-34.0) H* D 05/11/20 04:35 BUN 14 mg/dl (7-17) 05/10/20 15:10 Creatinine 1.10 mg/dl (0.52-1.04) H 05/10/20 15:10 Estimated Creat Clear 62 mL/min (50-200) 05/10/20 15:10 Was VTE Risk Assessment Performed: Yes VTE Score: 3 VTE Risk Level: Low Risk - Prophylaxis VTE Prophylaxis Ordered?: Yes Types of VTE Prophylaxis: TEDS Knee High, Pharmacological Location of Applied Device: Bilateral Lower Extremeties Pharmacologic Type: Heparin
--- NOTE | 2020-05-11 07:08 | PC.NURSE ---
attempted to call daughter. voicemail not set up unable to leave message
--- NOTE | 2020-05-11 07:46 | HMH.PHAINT ---
MEDICATION RECONCILIATION COMPLETED ON PATIENT USING MAR FROM [facility]. -NEIDA BECERRA, JULIANAD
--- NOTE | 2020-05-11 07:47 | PC.NURSE ---
Attempted to call family again to get consent for heart cath. Still no answer. States voicemail hasn't been set up yet. Asked pt if she knows of any other family members numbers and she states no.
--- NOTE | 2020-05-11 08:30 | PC.NURSE ---
PER DR RODRIGUES AND SALVADOR THIS IS PATIENT'S BASELINE AND SHE MAKES DECISIONS FOR HERSELF. THEY STATE SHE CAN SIGN CONSENT FOR HERSELF. MARISABEL TURNER AT BEDSIDE WELL. SALVADOR ASKED PT IS SHE WAS WILLING TO HAVE PROCEDURE AND SHE STATED YES. CONSENT AND PRE OP CHECKLIST COMPLETED BY THIS NURSE AND Jenna MARMOLEJO RN FOR VERIFICATION THAT PT DOES CONSENT TO SURGERY. ON THE CHART.
--- NOTE | 2020-05-11 08:32 | HMH.PNCARD ---
Subjective Date: 05/11/20 Time: 08:32 Principal diagnosis: arterial insufficiency of left hand Interval history: 59 yo WF in bed in NAD. No complaints. Left hand still with fading bluish discoloration of index and ring fingers from tips to the PIP. Capillary refills at 2-3 sec. She continues on IV heparin. Per Dr. Horner and Shadi, she is in charge of her medical care and she has agreed to the angiogram today. Echo shows LVEF of 55% with Grade 1 diastolic dysfunction. No evidence of endocarditis or thrombus. Carotid U/S shows no evidence of subclavian steal syndrome. Known history of breast CA with CXR this admission showing RUL abnormality/mass. Defer to PCP. Exam Vital signs and Labs for Last 24 Hours: Temp Pulse Resp BP Pulse Ox 98.3 F 74 18 111/61 94 L 05/11/20 07:45 05/11/20 07:45 05/11/20 07:45 05/11/20 07:45 05/11/20 07:45 Laboratory Results - last 24 hr 05/10/20 15:10: WBC 9.6, RBC 4.87, Hgb 13.9, Hct 42.5, MCV 87.4, MCH 28.5, MCHC 32.6, RDW 13.4, Plt Count 207, MPV 8.9, Neut % (Auto) 62.4, Lymph % (Auto) 28.2, [place] % (Auto) 6.1, Eos % (Auto) 2.8, Baso % (Auto) 0.4, Neut # (Auto) 6.0, Lymph # (Auto) 2.7, [place] # (Auto) 0.6, Eos # (Auto) 0.3, Baso # (Auto) 0.0 05/10/20 15:10: Sodium 142, Potassium 4.1, Chloride 106, Carbon Dioxide 30, Anion Gap 10.1, BUN 14, Creatinine 1.10 H, Estimated Creat Clear 62, Estimated GFR 51 L, Est GFR ( Amer) 61, Glucose 129 H, Calcium 9.6, Total Bilirubin 0.4, AST 24, ALT 25, Alkaline Phosphatase 84, Total Protein 7.1, Albumin 3.9, Globulin 3.2, Albumin/Globulin Ratio 1.2 05/10/20 15:10: PT 11.7, INR 1.06 05/10/20 15:10: ESR 21 05/10/20 15:10: C-Reactive Protein 15.0 H 05/10/20 15:10: APTT 25.4 05/10/20 15:10: SARS-CoV-2 IgG Ab (Rapid) Negative, SARS-CoV-2 IgM Ab (Rapid) Negative 05/10/20 15:10: Troponin I < 0.01 05/10/20 15:30: Lactate 1.7 05/10/20 18:45: Troponin I < 0.01 05/10/20 21:45: Troponin I < 0.01 05/10/20 21:45: APTT 79.1 H* D 05/11/20 04:35: APTT 68.0 H* D I & O for Last 24 hours: Intake & Output 05/08/20 05/09/20 05/10/20 05/11/20 11:59 11:59 11:59 11:59 Intake Total 737 / 737 Balance 737 / 737 Weight 155 lb - *Routine Respiratory Exam Present: CTA bilaterally - *Routine Cardiovascular Exam Present: RRR - *Routine Extremities Exam Present: cyanosis. Absent: clubbing, edema - *Routine Neurological Exam Present: alert, oriented X3 Progress Note: A&P (1) Cyanotic fingertip Status: Acute (2) Ischemia of hand Status: Acute (3) Coronary artery disease Status: Chronic (4) Dementia Status: Chronic (5) Tobacco abuse Status: Chronic Assessment and Plan for All Diagnoses:: 1. Continue IV heparin 2. LUE angiogram today Further recommendations to follow.
--- NOTE | 2020-05-11 09:18 | SW/DCPLANNER ---
Addendum entered by Erma Owens 05/12/20 09:32: Discharge information has been faxed to [facility]. Beena has requested that patient transfer back via ambulance. Addendum entered by Erma Owens 05/12/20 08:39: I have notified Beena at [facility] of negative COVID swab and patient will discharge back today. Beena is fine with patient returning. Addendum entered by Erma Owens 05/11/20 14:26: This patient will require a COVID swab prior to discharge back to [facility]. Patient should discharge tomorrow pending no setbacks. COVID swab has been ordered. Original Note: This patient currently resides at [facility]. Per Beena Gibbs patient is [facility] level of care and they will accept this patient once medically stable for discharge. Patient information will be faxed to [facility]. Patient could potentially discharge back later today. Beena Gibbs is aware.
[2020-05-11 13:50] LABS: Activated Partial Thrombo Time 35.7 seconds (23.6-34.0)
--- NOTE | 2020-05-11 14:22 | PC.NURSE ---
Jill guerrero/ pharmacy called and said to leave the heparin drip at 24mL/hr.
--- NOTE | 2020-05-11 14:49 | PC.NURSE ---
HEPARIN DRIP STOPPED PER DORIS IN PHAACY.
--- NOTE | 2020-05-11 15:02 | P.CONPHA_ITS ---
[facility] Pharmacy Heparin Dosing - Demographic Data Admission date:: 05/10/20 Date: 05/11/20 Time: 15:02 Allergies/Adverse Reactions: Allergies Allergy/AdvReac Type Severity Reaction Status Date / Time bee pollen Allergy Intermediate Unknown Verified 02/01/20 20:35 allergy reaction aspirin Allergy Unknown Unknown Verified 02/01/20 20:35 allergy reaction shellfish derived Allergy Unknown Unknown Verified 02/01/20 20:35 allergy reaction Height: 1.58 m Weight: 70 kg - Indication Medication therapy:: Heparin Patient Problems: Current Active Problems Dementia (Chronic) Tobacco abuse (Chronic) Cyanotic fingertip (Acute) Ischemia of hand (Acute) Subclavian steal syndrome (Acute) Coronary artery disease (Chronic) Subclavian steal syndrome of left subclavian artery (Acute) CVA?: No Bleeding problem?: No Kidney disease?: No [place]?: No Desired PTT range:: 50-70 seconds - Labs Anticoagulation Lab Results:: 05/10/20 15:10 Hgb 13.9 Hct 42.5 Plt Count 207 - Monitoring Dose Monitor 1 Date: 05/10/20 Time: 15:10 PTT Result:: 25.4 Infusion Rate:: 1300 UNITS/HR = 26 ML/HR Comment:: BASELINE PTT 5,000 UNIT BOLUS [id number] Dose Monitor 2 Date: 05/10/20 Time: 21:45 PTT Result:: 79.1 Infusion Rate:: 24 MLS/HR Dose Monitor 3 Date: 05/11/20 Time: 04:35 PTT Result:: 68.0 Infusion Rate:: 24 MLS/HR Dose Monitor 4 Date: 05/11/20 Time: 11:30 PTT Result:: 35.7 Comment:: HEPARIN DRIP WAS STOPPED AT 10:30 FOR ANGIOGRAM. XARELTO WILL BE STARTED AND HEPARIN DRIP STOPPED FOR GOOD PER [facility]. - Core Measures Is INR > or = 2 at discharge?: No Most Recent Labs:: Laboratory Results - last 24 hr 05/10/20 15:10: WBC 9.6, RBC 4.87, Hgb 13.9, Hct 42.5, MCV 87.4, MCH 28.5, MCHC 32.6, RDW 13.4, Plt Count 207, MPV 8.9, Neut % (Auto) 62.4, Lymph % (Auto) 28.2, [place] % (Auto) 6.1, Eos % (Auto) 2.8, Baso % (Auto) 0.4, Neut # (Auto) 6.0, Lymph # (Auto) 2.7, [place] # (Auto) 0.6, Eos # (Auto) 0.3, Baso # (Auto) 0.0 05/10/20 15:10: Sodium 142, Potassium 4.1, Chloride 106, Carbon Dioxide 30, Anion Gap 10.1, BUN 14, Creatinine 1.10 H, Estimated Creat Clear 62, Estimated GFR 51 L, Est GFR ( Amer) 61, Glucose 129 H, Calcium 9.6, Total Bilirubin 0.4, AST 24, ALT 25, Alkaline Phosphatase 84, Total Protein 7.1, Albumin 3.9, Globulin 3.2, Albumin/Globulin Ratio 1.2 05/10/20 15:10: PT 11.7, INR 1.06 05/10/20 15:10: ESR 21 05/10/20 15:10: C-Reactive Protein 15.0 H 05/10/20 15:10: APTT 25.4 05/10/20 15:10: SARS-CoV-2 IgG Ab (Rapid) Negative, SARS-CoV-2 IgM Ab (Rapid) Negative 05/10/20 15:10: Troponin I < 0.01 05/10/20 15:30: Lactate 1.7 05/10/20 18:45: Troponin I < 0.01 05/10/20 21:45: Troponin I < 0.01 05/10/20 21:45: APTT 79.1 H* D 05/11/20 04:35: APTT 68.0 H* D 05/11/20 13:10: APTT 35.7 H D Were Heparin and Warfarin started on the same day?: No
--- NOTE | 2020-05-11 15:09 | HMH.HP ---
*Admission Date: 05/10/20 *Chief complaint: decrease pulses *History of present illness: 59-year-old female who presented to the emergency department from [facility] with cyanotic fingers on her left hand. Was seen at [email or web address] and sent to ed for evaluation. All 5 digits on her left hand are cyanotic with decrease pulses. All of her fingers on left hand have a sluggish capillary refill. She states that her fingers are tender and painful throbbing like pain . Unable to palpate a ulnar or radial pulse in her left upper extremity. Weak Brachial pulse in the left upper extremity. She denies any chest pain or pressure. She denies any shortness of breath or edema. Pt states she noticed her fingers turning blue on Saturday, per staff they noticed fingers on saturday. However, the patient is confused to the day and month, so it is unclear whether this is accurate that this started on Saturday. Admitted for cardiology work up [facility] History I have reviewed the patient's past medical history: Yes Medical History: Reports:: Aneurysm, Atherosclerotic Heart Disease, Cancer, Chronic Obstructive Pulmonary Disease (COPD), Coronary Artery Disease, Cerebrovascular Accident, Dementia, Depression, Gall Bladder Disease, Gastroesophageal Reflux Disease(GERD), Hypertension, Urinary Tract Infection Denies:: Diabetes Mellitus Type 1, Diabetes Mellitus Type 2, Internal Pacemaker, MRSA, Seizures *Have you ever received a pneumonia vaccine?: Yes *Have you received a flu vaccine this season?: Yes Other Medical History: Reports: Arthritis Other Surgeries: Yes: Colonoscopy, Tubal Ligation. No: Pacemaker Amputation: Yes Fractures: No - *Social History Smoking Status: Unknown if ever smoked Tobacco Type: cigarettes # Packs/Day (cigarettes): 1 Alcohol Intake: never Alcohol Intake Frequency:: other Substance Use Type: unknown *Occupational Status:: retired Housing: [facility] *Travel in the last 8 weeks: None - Psychiatric History Pschychiatric History:: Reports:: Depression Family Hx:: Unable to obtain Review of Systems - Constitutional Denies body ache(s), Denies lack of energy - Eyes Denies change in vision - ENT Denies bleeding gums - *Cardiovascular Denies chest pain with activity - *Respiratory Denies chest congestion - *Gastrointestinal Denies bloating - *Genitourinary Denies abnormal vaginal bleeding - *Musculoskeletal Denies decreased muscle mass - Integumentary/Breasts Denies change in hair - *Neurologic Denies abnormal speech, Denies numbness, Denies weakness - Psychiatric Denies anxiety - Endocrine Denies flushing - Hematologic/Lymphatic Denies enlarged lymph nodes - Allergic/Immunologic Denies lip swelling Meds Home Medications Medication Instructions Recorded Confirmed Type bisacodyl 10 mg rectal suppository 10 mg RC Q72H PRN 07/26/17 05/10/20 History rivastigmine 9.5 mg TD DAILY each 07/26/17 05/11/20 History tizanidine 4 mg capsule 4 mg PO Q4HP PRN cap 07/26/17 05/10/20 History cycloSPORINE [Restasis] 1 drp EYE-RIGHT BID 08/14/18 05/11/20 History Mag Carb/Aluminum Hydrox/Algin 30 ml PO Q4HP PRN 05/27/19 05/10/20 History [Gaviscon Liquid] gabapentin 300 mg capsule 300 mg PO QID #120 cap 02/24/20 05/10/20 Rx Metoclopramide HCl [Reglan 10mg 10 mg PO AC 05/10/20 05/10/20 History Tab] Sennosides/Docusate Sodium 2 tab PO BID 05/10/20 05/10/20 History [Senexon-S 50-8.6 mg Tablet] Acetaminophen [Acetaminophen Extra 500 mg PO Q4HP PRN 05/11/20 05/11/20 History Strength] Lactulose [Lactulose 10gm/15ml 30 ml PO DAILY PRN 05/11/20 05/11/20 History Oral Soln] Multivitamin with Minerals 1 each PO DAILY 05/11/20 05/11/20 History [Multivitamins with Minerals] Nitroglycerin [Nitrostat 0.4mg SL 0.4 mg SL Q5MINP PRN 05/11/20 05/11/20 History Tablet] Venlafaxine HCl 25 mg PO BID 05/11/20 05/11/20 History calcium polycarbophiL [FiberCon 625 mg PO BID 05/11/20 05/11/20 History 6
[2020-05-11 15:30] LABS: CATHL Activated Clotting Time > 400 SEC (74-125)
--- NOTE | 2020-05-11 15:53 | PC.NURSE ---
A&OX4. PT HAS TOLERATED RA WELL THROUGHOUT SHIFT. RESPIRATIONS REGULAR AND UNLABORED. LUNG SOUNDS BILATERALLY CLEAR. NO COUGH NOTED. 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 NO EDEMA NOTED. PT REFUSED TEDS. ACTIVE BOWEL SOUNDS HEARD IN ALL 4 QUADRANTS. NO BM THUS FAR. PT IS INCONTINENT. CHANGED NEEDED. PT HAS REPORTED PAIN ONCE THUS FAR AND RECEIVED NORCO. ON REASSESSMENT, PT STATED PAIN HAD DECREASED AND WAS TOLERABLE. PT IS TOLERATING ORAL INTAKE WELL SINCE SQUIRREL WORKER PROCEDURE. DRESSING NOTED TO R GROIN. CDI. WILL CONTINUE TO MONITOR. BLUE RING FINGER AND INDEX FINGER NOTED TO L HAND. HAS STAYED ABOUT THE SAME THROUGHOUT SHIFT. WILL CONTINUE TO MONITOR. HEPARIN DRIP HAS CURRENTLY BEEN DC'D. PT WAS STARTED ON XARELTO. PT HAS STAYED LYING FLAT SINCE COMING BACK FROM SQUIRREL WORKER PROCEDURE. WILL CONTINUE TO LIE FLAT UNTIL 17:30. WILL SLOWLY INCREASE HOB GRADUALLY AFTER THAT. PT IS CURRENTLY LYING IN BED WATCHING TV. CALL LIGHT WITHIN REACH. BED IN LOWEST POSITION. VSS. WILL CONTINUE TO MONITOR.
[2020-05-12] VITALS: BP 96/58; PULSE 73; PULSE 80; RESP 16; TEMP 36.6; O2SAT 97
[2020-05-12 04:00] VITALS: BP 104/51; PULSE 60; PULSE 84; RESP 16; TEMP 36.7; O2SAT 96
--- NOTE | 2020-05-12 05:37 | PC.NURSE ---
Patient resting in bed watching tv at this time. No signs and symptoms of distress noted at this time. No complaints voiced.
[2020-05-12 05:54] VITALS: BMI 28.0
[2020-05-12 08:00] VITALS: BP 105/53; PULSE 72; PULSE 76; RESP 18; TEMP 36.7; O2SAT 96
[2020-05-12 08:06] LABS: Basophils % 0.2 % (0.1-2.0); Eosinophils % 0.2 % (0.1-12.0); Hematocrit 36.2 % (37.0-47.0); Hemoglobin 11.8 g/dL (12.2-16.2); Lymphocytes # 2.4 K/mm3 (0.7-4.5); Mean Corpuscular HGB Conc 32.7 g/dL (31.8-35.4); Mean Corpuscular Hemoglobin 28.2 pg (27.0-31.2); Mean Corpuscular Volume 86.2 fl (81-99); Mean Platelet Volume 9.5 fl (7.4-10.4); Monocytes # 0.8 K/mm3 (0.1-1.0); Monocytes % 5.9 % (1.7-9.3); Neutrophils # 9.6 K/mm3 (1.8-7.8); Neutrophils % 74.7 % (37.0-80.0); Platelet Count 206 K/mm3 (142-424); Red Cell Distribution Width 13.2 % (11.5-17.5); White Blood Count 12.9 K/mm3 (4.8-10.8)
[2020-05-12 08:09] LABS: Chloride 111 mmol/L (98-107); Potassium 3.8 mmoL/L (3.5-5.1); Sodium 140 mmol/L (136-145)
[2020-05-12 08:12] LABS: Anion Gap 8.8 mEq/L (5-15); Blood Urea Nitrogen 12 mg/dl (7-17); Calcium 8.9 mg/dl (8.4-10.2); Carbon Dioxide 24 mmol/L (22.0-30.0); Creatinine Clearance Estimated 95 mL/min (50-200); Estimated Glomerular Filt Rate 85 ml/min (>60); GFR (African American) 103 ML/MIN (>60); Glucose 142 mg/dl (74-100)
--- NOTE | 2020-05-12 09:13 | HMH.DCSUM ---
General - General Admission date:: 05/10/20 Discharge date: 05/12/20 HPI HPI: 59-year-old female who presented to the emergency department from [facility] with cyanotic fingers on her left hand. Was seen at [email or web address] and sent to ed for evaluation. All 5 digits on her left hand are cyanotic with decrease pulses. All of her fingers on left hand have a sluggish capillary refill. She states that her fingers are tender and painful throbbing like pain . Unable to palpate a ulnar or radial pulse in her left upper extremity. Weak Brachial pulse in the left upper extremity. She denies any chest pain or pressure. She denies any shortness of breath or edema. Pt states she noticed her fingers turning blue on Saturday, per staff they noticed fingers on saturday. However, the patient is confused to the day and month, so it is unclear whether this is accurate that this started on Saturday. Admitted for cardiology work up Hospital Course Hospital Course: pt was admitted with acute ischemia lt upper ext - was seen by card -is is a 59-year-old white female who presented to the emergency department from [facility] with cyanotic fingers on her left hand. All 5 digits on her left hand are cyanotic. Her index middle and ring fingers are all cool to touch. Her thumb and pinky finger are not as cool as the other 3 fingers. All of her fingers have a sluggish capillary refill. She states that her fingers are tender and painful. She states that nothing is really helping to improve the pain or tenderness. Nursing staff states that when report was called from the [facility] it was only her index and ring finger that were cyanotic. However, here all 5 of her digits on the left hand are cyanotic. I cannot palpate a ulnar or radial pulse in her left upper extremity. I cannot palpate a brachial pulse in the left upper extremity. However all pulses in the left upper extremity are noted on Doppler. I cannot palpate a radial pulse in her right upper extremity either but there is a ulnar pulse in the right upper extremity. She has no cyanotic digits in the right upper extremity. Her pedal pulses are palpable bilaterally. She denies any chest pain or pressure. She denies any shortness of breath or edema. She denies any fever, chills, nausea, vomiting, diarrhea, PND or orthopnea. She is alert to self and place. She is a little confused to time. She is able to tell me what year it is but she really does not know what day or month it is. She did report that she noticed her fingers turning blue on Saturday. However, the patient is confused to the day and month, so it is unclear whether this is accurate that this started on Saturday. The [facility] did notice her blue fingers today and she was sent here to the emergency department. The patient does have a history of dementia. She denies ever having blue digits in the past. The patient was admitted to the hospital from [facility] with cyanotic fingers on her left hand. The patient's digits are cool to touch and she is having pain/tenderness in the fingers of her hand. The palm of her hand is warm but her digits are all cyanotic and cool. I cannot palpate a pulse in her left wrist but her pulses are present by Doppler. Her blood pressure in her right upper extremity is 96/51 and the blood pressure in her left upper extremity is 64/48. The patient likely has subclavian stenosis/steal. 2. We will bolus the patient with heparin and then start a heparin drip. This is already been dosed per pharmacy. 3. We will get a carotid ultrasound to look for subclavian steal and vertebral for reversal. 4. We will get an echocardiogram to evaluate her LV function and make sure that there is no thrombus noted. 5. The patient does have a history of carotid artery disease. She denies any chest pain or pressure. Will get a troponin. 6. We will also get an EKG. 7. We will plan to take the patient to the
--- NOTE | 2020-05-12 09:54 | HMH.PHACLD ---
Kiah Hill has received discharge medication counseling on the following medications: PATIENT DISCHARGING ON PLAVIX 75 MG DAILY, LIPITOR 40 MG HS, AND XARELTO 20 MG QPMWM. PATIENT NOT STARTED ON ASPIRIN DUE TO ALLERGY.
--- NOTE | 2020-05-12 10:28 | PC.NURSE ---
Report called to Betina Buenrostro ([facility]) @ this time.
== END 2020-05-12 14:04 ==
LOC: ER 15:50 → 2ND 16:39
PROVIDERS: Internal Medicine; Nurse Practitioner Family; Admitting Provider Emergency Medicine; Emergency Provider Emergency Medicine; Visit Provider Emergency Medicine
DX: I70.228 Atherosclerosis of native arteries of extremities with rest pain, other extremity (principal); I77.1 Stricture of artery; G45.8 Other transient cerebral ischemic attacks and related syndromes; J44.9 Chronic obstructive pulmonary disease, unspecified; I25.10 Atherosclerotic heart disease of native coronary artery without angina pectoris; I11.0 Hypertensive heart disease with heart failure; Z72.0 Tobacco use; I50.30 Unspecified diastolic (congestive) heart failure; M48.08 Spinal stenosis, sacral and sacrococcygeal region; N31.9 Neuromuscular dysfunction of bladder, unspecified; I95.89 Other hypotension; Z79.899 Other long term (current) drug therapy
CPT/HCPCS: 36415; 37236; 71045; 80048; 80053; 83605; 84484; 85025; 85347; 85610; 85651; 85730; 86140; 86328; 93005; 93306; 93880; 96365; 96375; 99152; 99153; 99284; C1725; C1769; C1876; C1894; G0378; J1644; J2720; Q9967; U0003

== ENCOUNTER → 2020-06-01 13:03 | Outpatient (CLI) | payer MEDICARE, MEDICAID, SELFPAY ==
--- NOTE | 2020-06-01 13:09 | US_ITS ---
PROCEDURE: US EXTREMITY LT LIMITED CLINICAL INDICATION: left index finger pain and discoloration COMPARISON: No exams were available for comparison FINDINGS: Limited ultrasound performed of the 2nd digit distally showing no obvious cystic or solid lesions. IMPRESSION: Unremarkable ultrasound of the distal aspect of the 2nd digit Dictated by: Porter Amin MD 06/01/2020 13:31 Porter Amin MD in [place] 06/01/2020 13:31
== END ==
PROVIDERS: PCP Emergency Medicine; Visit Provider Urology
DX: I25.10 Atherosclerotic heart disease of native coronary artery without angina pectoris (principal); I73.9 Peripheral vascular disease, unspecified; I77.1 Stricture of artery; Z72.0 Tobacco use
CPT/HCPCS: 76882